=== PATIENT | male | born 1945 | race Caucasian/White ===

== ENCOUNTER 2016-10-14 07:40 | Outpatient (CLI) | payer MEDICARE, OTHER | END 2016-10-14 07:41 | disposition home or self-care (01) | DX: I25.10 Atherosclerotic heart disease of native coronary artery without angina pectoris (principal); E78.5 Hyperlipidemia, unspecified; Z51.81 Encounter for therapeutic drug level monitoring; Z12.5 Encounter for screening for malignant neoplasm of prostate | CPT/HCPCS: 36415; 80053; 80061; 85025; G0103 ==

== ENCOUNTER 2018-12-28 09:47 | Outpatient (CLI) | payer MEDICARE, OTHER ==
--- NOTE | 2018-12-28 10:58 | XRAY Report ---
Reason: ARTHRITIS Procedure Date: 12/28/2018 Accession Number: [id number] / [id number] Procedure: WCP - Hand 3 View BILAT CPT Code: FULL RESULT: EXAMS: 1. RIGHT HAND RADIOGRAPHY 2. LEFT HAND RADIOGRAPHY EXAM DATE: 12/28/2018 10:07 AM. CLINICAL HISTORY: Arthritis. COMPARISON: None. TECHNIQUE: 2 views each hand. FINDINGS: Right: Bones: Normal. No fractures or bone lesions. Joints: Predominantly distal interphalangeal joint space narrowing is noted without osseous destruction. Mild to moderate degenerative changes at the first carpometacarpal joint are also identified. Soft Tissues: Normal. No soft tissue swelling. Left: Bones: Normal. No fractures or bone lesions. Joints: Predominantly distal interphalangeal joint space narrowing is noted without osseous destruction. Soft Tissues: Normal. No soft tissue swelling. IMPRESSION: Mild osteoarthrosis. No erosive changes are detected. RADIA
== END 2018-12-28 09:48 | disposition home or self-care (01) ==
LOC: DI.WCP 09:47
PROVIDERS: ATTEND Internal Medicine Rheumatology
DX: M19.042 Primary osteoarthritis, left hand (principal); M19.041 Primary osteoarthritis, right hand

== ENCOUNTER 2018-12-28 09:51 | Outpatient (CLI) | payer MEDICARE, OTHER ==
--- NOTE | 2018-12-28 10:58 | XRAY Report ---
Reason: PELVIC PAIN Procedure Date: 12/28/2018 Accession Number: [id number] / [id number] Procedure: WCP - Pelvis 1 View CPT Code: FULL RESULT: EXAM: PELVIS RADIOGRAPHY EXAM DATE: 12/28/2018 10:07 AM. CLINICAL HISTORY: Pelvic pain. COMPARISON: None. TECHNIQUE: 1 view. FINDINGS: Bones: Normal. No fracture or bone lesion. Joints: The visualized hip joints demonstrate symmetric mild joint space narrowing. The pubis symphysis, and sacroiliac joints are preserved. No subluxation. Soft Tissues: Hyperdense material is seen within the bladder. IMPRESSION: Mild degenerative disease of the hips. RADIA
== END 2018-12-28 09:52 | disposition home or self-care (01) ==
LOC: DI.WCP 09:51
PROVIDERS: ATTEND Internal Medicine Rheumatology
DX: M16.0 Bilateral primary osteoarthritis of hip (principal); R10.2 Pelvic and perineal pain; M19.041 Primary osteoarthritis, right hand; M19.042 Primary osteoarthritis, left hand
CPT/HCPCS: 72170

== ENCOUNTER 2020-02-01 09:15 | Outpatient (CLI) | payer MEDICARE, OTHER ==
[2020-02-01 13:06] LABS: BASOPHILS # (AUTO) 0.1 10^3/uL (0.0-0.1); BASOPHILS % (AUTO) 1.1 %; EOSINOPHILS # (AUTO) 0.2 10^3/uL (0.0-0.7); EOSINOPHILS % (AUTO) 3.7 %; HGB - HEMOGLOBIN 13.2 g/dL (14.0-18.0); LYMPHOCYTES # (AUTO) 1.3 10^3/uL (1.5-3.5); LYMPHOCYTES % (AUTO) 19.6 %; MEAN CORPUSCULAR HEMOGLOBIN 31.7 pg (27.0-31.0); MEAN CORPUSCULAR HGB CONC 32.4 g/dL (32.0-36.0); MEAN CORPUSCULAR VOLUME 98.1 fL (80.0-94.0); MEAN PLATELET VOLUME 10.1 fL (7.4-11.4); MONOCYTES # (AUTO) 0.8 10^3/uL (0.0-1.0); MONOCYTES % (AUTO) 11.6 %; NEUTROPHILS # (AUTO) 4.2 10^3/uL (1.5-6.6); NEUTROPHILS % (AUTO) 63.7 %; PLT - PLATELET COUNT 237 10^3/uL (130-450); RED BLOOD COUNT 4.16 10^6/uL (4.70-6.10); RED CELL DISTRIBUTION WIDTH 13.2 % (12.0-15.0); WHITE BLOOD COUNT 6.5 x10^3/uL (4.8-10.8)
[2020-02-01 13:42] LABS: ALBUMIN 3.9 g/dL (3.2-5.5); ALBUMIN/GLOBULIN RATIO 1.2 (1.0-2.2); ALKALINE PHOSPHATASE 75 IU/L (42-121); ALT ALANINE AMINOTRANSFERASE 14 IU/L (10-60); AST ASPARTATE AMINOTRANSFERASE 18 IU/L (10-42); BILIRUBIN,TOTAL 1.3 mg/dL (0.2-1.0); BUN - BLOOD UREA NITROGEN 34 mg/dL (6-20); CALCIUM 8.7 mg/dL (8.5-10.3); CARBON DIOXIDE - CO2 28 mmol/L (21-32); CHLORIDE 103 mmol/L (101-111); CHOL/HDL RATIO 3.2 (<5.0); CHOLESTEROL 137 mg/dL; CREATININE 1.3 mg/dL (0.6-1.2); GLUCOSE 108 mg/dL (70-100); HDL CHOLESTEROL 43 mg/dL; LDL CHOLESTEROL,CALCULATED 81 mg/dL; LDL/HDL RATIO 1.9 (<3.6); SODIUM 140 mmol/L (135-145); TOTAL PROTEIN 7.1 g/dL (6.7-8.2); VLDL CHOLESTEROL 13 mg/dL
== END 2020-02-01 23:59 | disposition home or self-care (01) ==
LOC: LAB.WCP 09:15
PROVIDERS: ATTEND Physician Assistant Medical
DX: I10 Essential (primary) hypertension (principal); E78.5 Hyperlipidemia, unspecified
CPT/HCPCS: 36415; 80053; 80061; 83721; 85025

== ENCOUNTER 2020-03-19 08:00 | Outpatient (CLI) | payer MEDICARE, OTHER ==
[2020-03-19 11:56] LABS: BASOPHILS # (AUTO) 0.1 10^3/uL (0.0-0.1); BASOPHILS % (AUTO) 1.1 %; EOSINOPHILS # (AUTO) 0.2 10^3/uL (0.0-0.7); EOSINOPHILS % (AUTO) 2.7 %; HGB - HEMOGLOBIN 13.1 g/dL (14.0-18.0); LYMPHOCYTES # (AUTO) 1.1 10^3/uL (1.5-3.5); LYMPHOCYTES % (AUTO) 14.6 %; MEAN CORPUSCULAR HEMOGLOBIN 30.5 pg (27.0-31.0); MEAN CORPUSCULAR HGB CONC 31.6 g/dL (32.0-36.0); MEAN CORPUSCULAR VOLUME 96.5 fL (80.0-94.0); MEAN PLATELET VOLUME 10.1 fL (7.4-11.4); MONOCYTES # (AUTO) 0.8 10^3/uL (0.0-1.0); MONOCYTES % (AUTO) 10.1 %; NEUTROPHILS # (AUTO) 5.3 10^3/uL (1.5-6.6); NEUTROPHILS % (AUTO) 71.2 %; PLT - PLATELET COUNT 239 10^3/uL (130-450); RED BLOOD COUNT 4.29 10^6/uL (4.70-6.10); RED CELL DISTRIBUTION WIDTH 13.2 % (12.0-15.0); WHITE BLOOD COUNT 7.4 x10^3/uL (4.8-10.8)
[2020-03-19 13:08] LABS: % IRON SATURATION 16 % (20-50); FERRITIN 38.5 ng/mL (23.9-336.2); IRON 68 ug/dL (45-182); TOTAL IRON BINDING CAPACITY 423 ug/dL (250-450); TRANSFERRIN 302 mg/dL (180-329)
[2020-03-19 13:12] LABS: FOLATE 11.08 ng/mL (5.90 - >24.8)
== END 2020-03-19 23:59 | disposition home or self-care (01) ==
LOC: LAB.WCP 08:00
PROVIDERS: ATTEND Physician Assistant Medical
DX: D64.9 Anemia, unspecified (principal)
CPT/HCPCS: 36415; 82607; 82728; 82746; 83540; 84466; 85025

== ENCOUNTER 2020-05-09 08:00 | Outpatient (CLI) | payer MEDICARE, OTHER | END 2020-05-09 23:59 | disposition home or self-care (01) | LOC: LAB.WCP 08:00 | PROVIDERS: ATTEND Physician Assistant Medical | DX: E53.8 Deficiency of other specified B group vitamins (principal) | CPT/HCPCS: 36415; 82607 ==

== ENCOUNTER 2020-06-04 07:17 | Outpatient (CLI) | payer MEDICARE, OTHER ==
--- NOTE | 2020-06-04 14:27 | Ultrasound Report ---
PROCEDURE: Abdomen Limited INDICATIONS: RUQ ABD PAIN TECHNIQUE: Real-time focused scanning was performed of the abdomen, with image documentation. COMPARISON: CT abdomen/pelvis 05/03/2016 FINDINGS: The liver measures up to 19.1 cm craniocaudad, mildly enlarged. The liver appears diffusel y hyperechoic consistent with fatty infiltration. Large body habitus reduces quality of visualization . At the inferior right hepatic lobe what appears to be a hepatic hemangioma measures up to 1.5 x 1.8 x 1.9 cm. This is hyperechoic and shows increased through transmission of ultrasound. It cannot be s een on prior CT scanning but the phase of contrast enhancement was not optimized for such visualizati on. There is a finding of several scattered mobile stones within the gallbladder lumen which shows no bianca dence of acute cholecystitis or obstruction. Right kidney appears normal. IMPRESSION: Fatty infiltration within the liver. What appears to be a focal hemangioma is present within the righ t hepatic lobe in an area that was not well visualized by prior CT scanning in April 2016. Recommend follow-up ultrasound in 3-6 months to confirm stability of appearance over time at this site. Gallst ones are seen within the gallbladder lumen without evidence of acute cholecystitis or biliary obstruc tion. Reviewed by: John Godinez MD on 06/04/2020 2:26 PM PDT Approved by: John Godinez MD on 06/04/2020 2:26 PM PDT Station ID: [id number]
== END 2020-06-04 07:18 | disposition home or self-care (01) ==
LOC: DI 07:17
PROVIDERS: ATTEND Physician Assistant Medical
DX: K76.0 Fatty (change of) liver, not elsewhere classified (principal); R93.2 Abnormal findings on diagnostic imaging of liver and biliary tract
CPT/HCPCS: 76705

== ENCOUNTER 2020-08-07 08:00 | Outpatient (CLI) | payer MEDICARE, OTHER ==
[2020-08-07 11:59] LABS: BASOPHILS # (AUTO) 0.1 10^3/uL (0.0-0.1); BASOPHILS % (AUTO) 1.1 %; EOSINOPHILS # (AUTO) 0.3 10^3/uL (0.0-0.7); EOSINOPHILS % (AUTO) 3.5 %; HGB - HEMOGLOBIN 12.5 g/dL (14.0-18.0); LYMPHOCYTES # (AUTO) 1.3 10^3/uL (1.5-3.5); LYMPHOCYTES % (AUTO) 18.5 %; MEAN CORPUSCULAR HEMOGLOBIN 31.6 pg (27.0-31.0); MEAN CORPUSCULAR HGB CONC 32.1 g/dL (32.0-36.0); MEAN CORPUSCULAR VOLUME 98.5 fL (80.0-94.0); MEAN PLATELET VOLUME 9.9 fL (7.4-11.4); MONOCYTES # (AUTO) 0.8 10^3/uL (0.0-1.0); NEUTROPHILS # (AUTO) 4.7 10^3/uL (1.5-6.6); NEUTROPHILS % (AUTO) 65.6 %; PLT - PLATELET COUNT 255 10^3/uL (130-450); RED BLOOD COUNT 3.95 10^6/uL (4.70-6.10); RED CELL DISTRIBUTION WIDTH 12.5 % (12.0-15.0); WHITE BLOOD COUNT 7.2 x10^3/uL (4.8-10.8)
[2020-08-07 12:12] LABS: ALBUMIN 3.8 g/dL (3.2-5.5); ALBUMIN/GLOBULIN RATIO 1.2 (1.0-2.2); ALKALINE PHOSPHATASE 79 IU/L (42-121); ALT ALANINE AMINOTRANSFERASE 13 IU/L (10-60); AST ASPARTATE AMINOTRANSFERASE 17 IU/L (10-42); BILIRUBIN,TOTAL 0.9 mg/dL (0.2-1.0); BUN - BLOOD UREA NITROGEN 35 mg/dL (6-20); CALCIUM 8.9 mg/dL (8.5-10.3); CARBON DIOXIDE - CO2 29 mmol/L (21-32); CHLORIDE 103 mmol/L (101-111); CHOL/HDL RATIO 3.2 (<5.0); CHOLESTEROL 132 mg/dL; CREATININE 1.8 mg/dL (0.6-1.2); GLUCOSE 105 mg/dL (70-100); HDL CHOLESTEROL 41 mg/dL; LDL CHOLESTEROL,CALCULATED 76 mg/dL; LDL/HDL RATIO 1.9 (<3.6); SODIUM 140 mmol/L (135-145); TOTAL PROTEIN 7.1 g/dL (6.7-8.2); VLDL CHOLESTEROL 15 mg/dL
== END 2020-08-07 23:59 | disposition home or self-care (01) ==
LOC: LAB.WCP 08:00
PROVIDERS: ATTEND Physician Assistant Medical
DX: E78.5 Hyperlipidemia, unspecified (principal); E53.8 Deficiency of other specified B group vitamins
CPT/HCPCS: 36415; 80053; 80061; 82607; 83721; 85025

== ENCOUNTER 2020-09-16 08:59 | Outpatient (CLI) | payer MEDICARE, OTHER ==
[2020-09-16 14:07] LABS: CREATININE 1.2 mg/dL (0.6-1.2); POTASSIUM 3.5 mmol/L (3.5-5.0)
== END 2020-09-16 23:59 | disposition home or self-care (01) ==
LOC: LAB.WCP 08:59
PROVIDERS: ATTEND Physician Assistant Medical
DX: I10 Essential (primary) hypertension (principal)
CPT/HCPCS: 36415; 80048

== ENCOUNTER 2020-09-24 18:21 | Outpatient (CLI) | payer MEDICARE, OTHER ==
--- NOTE | 2020-09-25 08:35 | XRAY Report ---
PROCEDURE: Chest 2 View X-Ray INDICATIONS: Reactive Airway Disease TECHNIQUE: 2 view(s) of the chest. COMPARISON: 07/22/2010. FINDINGS: Surgical changes and devices: None. Lungs and pleura: No pleural effusions or pneumothorax. Mild elevation of right hemidiaphragm and bl unting of right costophrenic angle is seen suggestive of trace right pleural effusion/thickening. Inc reased bronchovascular markings in bilateral hilar region are seen with mild bronchial wall thickenin g. No definite focal infiltrate. Mediastinum: Mediastinal contours are normal. Heart size is normal. Bones and chest wall: No suspicious bony abnormalities. Soft tissues appear unremarkable. IMPRESSION: Suggestion of reactive airway disease such as bronchitis or asthma. Trace right pleural effusion versus pleural thickening. Mild elevation of right hemidiaphragm. No definite focal infiltra te. No gross pneumothorax. Reviewed by: Estrada Covarrubias MD on 09/25/2020 8:34 AM PST Approved by: Estrada Covarrubias MD on 09/25/2020 8:34 AM PST Station ID: [id number]
== END 2020-09-24 18:22 | disposition home or self-care (01) ==
LOC: DI 18:21
PROVIDERS: ATTEND Physician Assistant Medical
DX: J45.998 Other asthma (principal)

== ENCOUNTER 2020-09-25 07:59 | Outpatient (CLI) | payer MEDICARE, OTHER ==
--- OUTSIDE RECORDS SUMMARY | 2020-10-01 00:59 | EXTERNAL MEDICAL SUMMARY RPT | Continuity of Care Document ---
:1945 Demographics Phone Unavailable Preferred Language Czech Marital Status Unknown Samaritan Affiliation Unknown Race Unknown Ethnic Group Unknown Author Organization [place] Address [address] [place] [address] Phone Care Team Providers Name Role Phone PA-C Unavailable Unavailable Young Unavailable Unavailable Graves Unavailable Unavailable Problems date description facility [facility] 2020-07-21 00:00:00 COMPREHENSIVE METABOLIC PANEL [facility] Primary Care [facility] 2020-07-21 00:00:00 LIPID SCREEN, FASTING [facility] P rimary Care [facility] 2020-07-21 00:00:00 [facility]AMIN B 12 [facility] 2020-07-21 00:00:00 CBC W/Diff/Plt [facility] 2020-08-07 00:00 DEFICIENCY OF OTHER SPECIFIED B [facility] 2020-08-07 00:00 HYPERLIPIDEMIA, UNSPECIFIED [facility] 2020-08-07 08:00 DEFICIENCY OF OTHER SPECIFIED B [facility] 2020-08-07 08:00 HYPERLIPIDEMIA, UNSPECIFIED [facility] 2020-08-13 00:00:00 Basic Metabolic Panel (BMP) [facility] Primary Care [facility] 2020-08-13 00:00:00 Chronic kidney disease, [facility] 2020-08-13 00:00:00 Alcohol intake [facility] 2020-08-13 00:00:00 [facility]related [facility] 2020-08-13 00:00:00 Tobacco use and exposure [facility] 2020-08-13 00:00:00 [facility] 2020-08-13 00:00:00 [facility] 2020-08-13 00:00:00 Alcohol use [facility] 2020-08-13 00:00:00 Tobacco smoking status [facility]IS [facility] 2020-08-13 00:00:00 Chronic renal [facility] 2020-09-04 00:00:00 Alcohol intake [facility] Prim [facility] Care [facility] 2020-09-04 00:00:00 Health-related behavior [facility] 2020-09-04 00:00:00 [facility] 2020-09-04 00:00:00 Exercise [facility] Prim [facility] Care [facility] 2020-09-04 00:00:00 [facility] smoker [facility] 2020-09-04 00:00:00 [facility] 2020-09-04 00:00:00 Tobacco smoking status NHIS [facility] 2020-09-16 00:00 [facility] 2020-09[facility]16 08:59 [facility] 2020-09-23 00:00:00 [facility]ST [facility] 2020-09-24 00:00:00 ECHO TRANSTHORACIC COMPLETE [facility] 2020-09-24 00:00:00 [facility] 2020-09-24 00:00:00 Health-related behavior [facility] 2020-09-24 00:00:00 [facility] 2020-09-24 00:00:00 Exercise [facility] Care [facility] 2020-09-24 00:00:00 Never smoker [facility] 2020-09-24 00:00:00 [facility] use [facility] 2020-09-24 00:00:00 Tobacco [facility] 2020-09-24 18:21 OTHER ASTHMA [facility] Allergies date description facility No Known Drug Allergies [facility] NO KNOWN ENVIRONMENTAL ALLERGIES [facility] MORPHINE [facility] NO KNOWN ALLERGIES [facility] NO ALLERGY INFORMATION AVAILABLE [facility] No Known Drug Allergies [facility] CEPHALEXIN [facility] ESCITALOPRAM [facility] FLUOXETINE [facility] PENICILLINS [facility] SULFA ANTIBIOTICS [facility] FOOD [facility] No Known Drug Allergies [facility] Medications date description facility 2020-07-15 00:00:00 null [facility] 2020-09-26 00:00:00 null [facility] 2020-09-26 00:00:00 null [facility] 2020-09-26 00:00:00 PREDNISONE [facility] 2020-09-26 00:00:00 PREDNISONE [facility] 2020-09-29 00:00:00 null [facility] 2020-09-29 00:00:00 null [facility] Prim [facility] 2020-09-29 00:00:00 ALBUTEROL SULFATE [facility] 2020-09-29 00:00:00 ALBUTEROL SULFATE [facility] Procedures date description facility 2020-07-21 00:00:00 COMPREHENSIVE METABOLIC PANEL [facility] date description facility 2020-07-21 00:00:00 LIPID SCREEN, FASTING [facility] P [facility] date description facility 2020-07-21 00:00:00 VITAMIN B 12 [facility] date description facility 2020-07-21 00:00:00 CBC W/Diff/Plt [facility] date description facility 2020-07-21 00:00:00 [facility] date description facility 2020-08-13 00:00:00 Basic Metabolic Panel (BMP) [facility] date description facility 2020-08-13 00:00:00 EKG Office Complete [facility] date description facility 2020-08-13 00:00:00 [facility] date description facility 2020-09-03 00:00:00 [facility] date description facility 2020-09-23 00:00:00 CHEST 2 VIEW [facility] date description facility 2020-09-23 00:00:00 [facility] Results Social History date description facility 2020-08-13 00:00:00 Never smoker [facility] date description facility 2020-09-04 00:00:00 Never smoker [facility] date description facility 2020-09-24 00:00:00 Never smoker [facility] Social History date description facility 2020-08-13 00:00:00 Never smoker [facility] date description facility 2020-09-04 00:00:00 Never smoker [facility] date description facility 2020-09-24 00:00:00 Never smoker [facility] date description facility [phone]
== END 2020-09-25 08:00 | disposition home or self-care (01) ==
LOC: COV 07:59
PROVIDERS: ATTEND Surgery
DX: Z01.812 Encounter for preprocedural laboratory examination (principal); K81.1 Chronic cholecystitis; Z20.822 Contact with and (suspected) exposure to COVID-19

== ENCOUNTER 2020-10-09 19:53 | Outpatient (CLI) | payer MEDICARE, OTHER | END 2020-10-09 19:54 | disposition home or self-care (01) | LOC: COV 19:53 | PROVIDERS: ATTEND Surgery | DX: Z01.812 Encounter for preprocedural laboratory examination (principal); K81.1 Chronic cholecystitis; Z20.822 Contact with and (suspected) exposure to COVID-19 ==

== ENCOUNTER 2020-10-17 16:21 | Outpatient (CLI) | payer MEDICARE, OTHER | END 2020-10-17 16:22 | disposition home or self-care (01) | LOC: COV 16:21 | PROVIDERS: ATTEND Surgery | DX: Z01.812 Encounter for preprocedural laboratory examination (principal); K81.1 Chronic cholecystitis; Z20.822 Contact with and (suspected) exposure to COVID-19 ==

== ENCOUNTER 2020-10-21 07:21 | Day surgery (SDC) | payer MEDICARE, OTHER ==
[2020-10-21] MEDS ORDERED: LACTATED RINGERS 1,000 ML IV ONE ×2 (07:26→10:43)
[2020-10-21] MEDS ORDERED: ceFAZolin 2 GM/50 ML 2 GM/50 ML BAG IV ONE (07:43)
[2020-10-21] MEDS ORDERED: fentaNYL 100 MCG/2 ML VIAL ONE ×2 (07:45→10:08)
[2020-10-21] MEDS ORDERED: LIDOCAINE-MPF 2% 5 ML VIAL ONE (07:45)
[2020-10-21] MEDS ORDERED: MIDAZOLAM 2 MG/2 ML VIAL ONE (07:45)
[2020-10-21] MEDS ORDERED: PROPOFOL 200 MG/20 ML VIAL IVP ONE (07:45)
[2020-10-21] MEDS ORDERED: ROCURONIUM 50 MG/5 ML VIAL ONE (07:45)
--- NOTE | 2020-10-21 08:02 | ANESTHESIA ---
Pre-Anesthesia VS, & Labs - Diagnosis chronic cholecystitis - Procedure lap aundrea Vital Signs: Temp Pulse Resp BP Pulse Ox 36.6 C 61 12 147/66 H 97 10/21/20 07:27 10/21/20 07:27 10/21/20 07:27 10/21/20 07:27 10/21/20 07:27 Height: 5 ft 9 in Weight (kg): 99.7 kg Body Mass Index: 32.4 BMI Classification: Obese - NPO >8 hours Home Medications and Allergies Aspirin [Adult Low Dose Aspirin EC] 81 mg PO DAILY 02/12/16 Cholecalciferol [Vitamin D3] 2,000 unit PO DAILY 02/12/16 Cyanocobalamin (Vitamin B-12) [Vitamin B12] 1,000 mcg PO DAILY 02/12/16 Isosorbide Mononitrate ER [Imdur] 60 mg PO DAILY 02/12/16 Losartan Potassium 50 mg PO BID 02/12/16 Pantoprazole Sodium [Protonix] 40 mg PO DAILY 02/12/16 atenoloL [Atenolol] 12.5 mg PO DAILY 02/12/16 Amlodipine Besylate [Norvasc] 10 mg PO DAILY 09/23/20 Metronidazole 1% Gel [Metrogel] 1 applic TOP BID 09/23/20 Propylene Glycol [Systane Balance] 1 drops EACHEYE BID 09/23/20 Rivaroxaban [Xarelto] 20 mg PO QPM 09/23/20 Rosuvastatin Calcium [Crestor] 5 mg PO QPM 09/23/20 Ubidecarenone [Co Q-10] 200 mg PO DAILY 09/23/20 Albuterol Sulfate [Proair Hfa Inhaler] 1 - 2 puffs INH Q4H PRN 10/06/20 Allergies/Adverse Reactions: Allergies Allergy/AdvReac Type Severity Reaction Status Date / Time No Known Drug Allergies Allergy Verified 02/12/16 11:07 Anes History & Medical History - Anesthetic History Anesthesia Complications: reports: No previous complications - Medical History Cardiovascular: reports: High cholesterol, Coronary artery disease (s/p stent), Atrial fibrillation, Murmur, Arrhythmia Pulmonary: reports: Asthma, Sleep apnea, CPAP use Gastrointestinal: reports: GERD, Hiatal hernia, Chronic constipation, Cholelithiasis Urinary: reports: None Neuro: reports: None Musculoskeletal: reports: Osteoarthritis Endocrine/Autoimmune: reports: None Blood Disorders: reports: None Skin: reports: Psoriasis Smoking Status: Never smoker Psychosocial: reports: No issues indicated History of Cancer?: No - Surgical History General: Hiatal hernia repair, Colonoscopy Cardiothoracic: Coronary stent Orthopedic: Carpal Tunnel surgery Exam General: Alert, Oriented x3, Cooperative, No acute distress Dental: WNL Mouth Openin Fingerbreadth Neck Mobility: Normal Mallampati classification: III (High arched palate, short TMD) Thyromental Distance: less than 4 cm Mental/Cognitive Status: Alert/Oriented X3, Normal for patient Plan Anesthesia Type: General Consent for Procedure(s) Verified and Reviewed: Yes Code Status: Attempt Resuscitation ASA classification: 3-Severe systemic disease Is this case an emergency?: No
[2020-10-21] MEDS ORDERED: BUPIVACAINE 0.25% PF 30 ML VIAL SUBQ ONE ×2 (08:03→09:54)
[2020-10-21] MEDS ORDERED: BUPIVACAINE 0.25% PF 30 ML VIAL ONE (08:11)
--- NOTE | 2020-10-21 08:20 | HISTORY & PHYSICAL EXAMINATION ---
Chief Complaint - Chief Complaint Chief Complaint: right upper quadrant pain History of Present Illness - History Obtained From History obtained from: patient Exam Limitations: none - History of Present Illness HPI Comment/Other: He has had several months of daily right upper quadrant pain consistent with biliary cholic and chronic cholecystitis. He has gallstones. No signs or symptoms of choledocholithiasis History - Past Medical History Cardiovascular: reports: High cholesterol, Coronary artery disease (s/p stent), Atrial fibrillation, Murmur, Arrhythmia Respiratory: reports: Asthma, Sleep apnea, CPAP use Neuro: reports: None Endocrine/Autoimmune: reports: None GI: reports: GERD, Hiatal hernia, Chronic constipation, Cholelithiasis : reports: None HEENT: reports: Chronic vision loss Psych: reports: None Musculoskeletal: reports: Osteoarthritis Derm: reports: Psoriasis MRSA Hx?: No - Past Surgical History General: reports: Hiatal hernia repair, Colonoscopy Ortho: reports: Carpal Tunnel surgery Cardiovascular: reports: Coronary stent Meds/Allgy - Home Medications Home Medications: Ambulatory Orders Medication Instructions Recorded Confirmed Aspirin [Adult Low Dose Aspirin EC] 81 mg PO DAILY 02/12/16 10/21/20 Cholecalciferol [Vitamin D3] 2,000 unit PO DAILY 02/12/16 10/21/20 Cyanocobalamin (Vitamin B-12) 1,000 mcg PO DAILY 02/12/16 10/21/20 [Vitamin B12] Isosorbide Mononitrate ER [Imdur] 60 mg PO DAILY 02/12/16 10/21/20 Losartan Potassium 50 mg PO BID 02/12/16 10/21/20 Pantoprazole Sodium [Protonix] 40 mg PO DAILY 02/12/16 10/21/20 atenoloL [Atenolol] 12.5 mg PO DAILY 02/12/16 10/21/20 Amlodipine Besylate [Norvasc] 10 mg PO DAILY 09/23/20 10/21/20 Metronidazole 1% Gel [Metrogel] 1 applic TOP BID 09/23/20 10/21/20 Propylene Glycol [Systane Balance] 1 drops EACHEYE BID 09/23/20 10/21/20 Rivaroxaban [Xarelto] 20 mg PO QPM 09/23/20 10/21/20 Rosuvastatin Calcium [Crestor] 5 mg PO QPM 09/23/20 10/21/20 Ubidecarenone [Co Q-10] 200 mg PO DAILY 09/23/20 10/21/20 Albuterol Sulfate [Proair Hfa 1 - 2 puffs INH Q4H PRN 10/06/20 10/21/20 Inhaler] - Allergies Allergies/Adverse Reactions: Allergies Allergy/AdvReac Type Severity Reaction Status Date / Time No Known Drug Allergies Allergy Verified 02/12/16 11:07 Review of Systems - Constitutional Constitutional: reports: Fatigue (10 pt ros as above otherwise unremarkable. recent cardiac clearance. Off blood thinners for couple days) Exam - Vital Signs Reviewed Vital Signs: Yes Vital Signs: Vital Signs x48h Temp Pulse Resp BP Pulse Ox 10/21/20 07:27 36.6 C 61 12 147/66 H 97 - Physical Exam General Appearance: positive: No acute distress, Alert Eyes Bilateral: positive: Normal inspection, PERRL, EOMI ENT: positive: Pharynx nml Neck: positive: No JVD Respiratory: positive: No respiratory distress, Breath sounds nml Cardiovascular: positive: Irregularly irregular Abdomen: positive: Non-tender, No distention, Other (large umbilical hernia) Neurologic/Psychiatric: positive: Oriented x3 Conclusion/Plan - Problem List (1) Chronic cholecystitis Conclusion/Plan: plan lap cholecystectomy. parq held and consent obtained - Lab Results Lab results reviewed: Yes - Diagnostic Imaging Results Diagnostic Imaging Results: positive: Read independently (gallstones)
[2020-10-21] MEDS ORDERED: MORPHINE 2 MG/ML CARPUJECT IVP PRN (08:26)
[2020-10-21] MEDS ORDERED: NALOXONE 0.4 MG/ML VIAL IVP PRN (08:26)
[2020-10-21] MEDS ORDERED: ONDANSETRON 4 MG/2 ML VIAL IVP PRN ×2 (08:26→10:17)
[2020-10-21] MEDS ORDERED: METOCLOPRAMIDE 10 MG/2 ML VIAL IVP PRN (08:26)
[2020-10-21] MEDS ORDERED: ePHEDrine 50 MG/ML VIAL IVP PRN (08:26)
[2020-10-21] MEDS ORDERED: fentaNYL 100 MCG/2 ML VIAL IVP PRN (08:26)
[2020-10-21] MEDS ORDERED: HYDROmorphone 0.5 MG/0.5 ML SYRINGE IVP PRN ×2 (08:26→08:41)
[2020-10-21] MEDS ORDERED: ATROPINE ABBOJECT 1 MG/10 ML SYRINGE IVP PRN (08:26)
[2020-10-21] MEDS ORDERED: DEXAMETHASONE 4 MG/ML VIAL ONE (08:59)
[2020-10-21] MEDS ORDERED: ONDANSETRON 4 MG/2 ML VIAL ONE (08:59)
[2020-10-21] MEDS ORDERED: LACTATED RINGERS 1,000 ML IV SCH (09:00)
[2020-10-21] MEDS ORDERED: SUGAMMADEX 200 MG/2 ML VIAL IVP ONE (09:58)
[2020-10-21] MEDS ORDERED: HYDROcod/ACETAM 5/325 MG TABLET PO PRN (10:17)
--- NOTE | 2020-10-21 10:17 | OPERATIVE REPORT ---
Operative Report - General Procedure Date: 10/21/20 Planned Procedure: lap aundrea Pre-Op Diagnosis: chronic cholecystitis Procedure Performed: lap aundrea Post Op Diagnosis: same - Procedure Note Primary Surgeon: zackary cortez Anesthesia Technique: General ET tube, Local Pathology: gallbladder Estimated Blood Loss (mL): 10 Drain/Tube Type: Other (none) Findings: chronic cholecystitis Complications: none
[2020-10-21] MEDS ORDERED: HYDROmorphone 0.5 MG/0.5 ML SYRINGE ONE (10:51)
[2020-10-21 11:20] VITALS: BP 112/69
--- NOTE | 2020-10-21 11:25 | OPERATIVE REPORT ---
DATE OF SERVICE: 10/21/2020 Physician: Sarthak Bassett MD 10/21/2020 PREOPERATIVE DIAGNOSIS: Chronic cholecystitis. POSTOPERATIVE DIAGNOSIS: Chronic cholecystitis. PROCEDURE PERFORMED: Laparoscopic cholecystectomy. SURGEON: Sarthak Bassett MD RESEARCH NEUROPSYCHOLOGIST: None. ANESTHESIA: 1. General endotracheal anesthesia. 2. Local anesthesia with Marcaine. COMPLICATIONS: None. SPECIMENS: Gallbladder. ESTIMATED BLOOD LOSS: None. DRAINS: None. FINDINGS: Mild chronic cholecystitis. A small cystic duct. INDICATIONS FOR PROCEDURE: The patient is a 75-year-old gentleman with classic chronic cholecystitis symptoms. He has daily right upper quadrant pain. He has not had signs or symptoms of choledocholithiasis. He presents for laparoscopic cholecystectomy. Risks discussed, alternatives discussed. All questions answered and consent obtained. DESCRIPTION OF PROCEDURE: The patient was properly identified and brought to the operating room and placed in supine position. He voided prior to surgery. General endotracheal anesthesia was induced. Sequential compression devices were placed. He was prepped and draped in a sterile fashion and given preoperative antibiotics. Local anesthetic was given to incision areas. He has a 4 cm umbilical hernia and a large diastasis. Incision was made approximately 5 cm cephalad and a 4 cm right lateral of the umbilicus. Dissection proceeded down to the fascia. The fascia was incised, lifted upwards and abdomen entered with the Veress needle. CO2 was insufflated to a pressure of 15. An 11 mm Visiport trocar with 30-degree scope was then placed. There was no evidence of injury from Veress needle or trocar placement. Under direct vision, two 5 mm trocars were placed in the right upper quadrant and a 10 mm trocar was placed in the epigastrium. Body of the gallbladder was retracted anterior. Lateral attachments were partially taken down further mobilizing the gallbladder more anterior and away from the duodenum. The Alicia's pouch and infundibulum area was then retracted right lateral and caudad. The cystic duct and cystic artery were both clearly identified. A large bare cystic plate area or window was created. The cystic duct and cystic artery were both clipped at the gallbladder and an additional 2-3 times slightly proximal and sharply divided. The gallbladder was mobilized off from the bed of the liver without spillage of bile or stone material. A Surgicel was placed at the liver bed area for further assurance of hemostasis. Fascia at the epigastrium was closed with a [id number] 0 Vicryl. Trocars were removed under direct vision and CO2 evacuated. Fascia at the periumbilical site was closed with a running 0 Vicryl suture. Skin was closed with buried interrupted or running 4-0 Monocryl subcuticular suture. Steri-Strips and dressings were applied. He tolerated the procedure very well. TD: 10/21/2020 10:47 [facility]
--- NOTE | 2020-10-21 11:48 | ANESTHESIA POST OP EVALUATION ---
Anesthesia Post Eval - Post Anesthesia Eval Vitals: Last Vital Signs Temp 36.4 C L 10/21/20 11:20 Pulse 50 L 10/21/20 11:20 Resp 12 10/21/20 11:20 BP 112/69 10/21/20 11:20 Pulse Ox 94 10/21/20 11:20 CV Function Including HR & BP: positive: Stable Pain Control: positive: Satisfactory Nausea & Vomiting: positive: Negative Mental Status: positive: Baseline Respiratory Status: Airway Patent Hydration Status: Satisfactory Anesthesia Complications: positive: None
== END 2020-10-21 07:22 | disposition home or self-care (01) ==
LOC: SDS 07:21
PROVIDERS: ATTEND Surgery
PROC: 0FT44ZZ Resection of Gallbladder, Percutaneous Endoscopic Approach (ICD-10-PCS; principal; 2020-10-21 08:30)
DX: K80.10 Calculus of gallbladder with chronic cholecystitis without obstruction (principal); K42.9 Umbilical hernia without obstruction or gangrene; I48.91 Unspecified atrial fibrillation; I25.10 Atherosclerotic heart disease of native coronary artery without angina pectoris; G47.30 Sleep apnea, unspecified; J45.909 Unspecified asthma, uncomplicated; E66.9 Obesity, unspecified; Z68.32 Body mass index [BMI] 32.0-32.9, adult; Z95.5 Presence of coronary angioplasty implant and graft
CPT/HCPCS: 47562; 93005; A9270; J0690; J1170; J7120

== ENCOUNTER 2021-01-15 08:00 | Outpatient (CLI) | payer MEDICARE, OTHER ==
[2021-01-15 12:00] LABS: BASOPHILS # (AUTO) 0.1 10^3/uL (0.0-0.1); BASOPHILS % (AUTO) 1.6 %; EOSINOPHILS # (AUTO) 0.4 10^3/uL (0.0-0.7); EOSINOPHILS % (AUTO) 5.1 %; HCT - HEMATOCRIT 35.7 % (42.0-52.0); HGB - HEMOGLOBIN 10.6 g/dL (14.0-18.0); LYMPHOCYTES # (AUTO) 1.1 10^3/uL (1.5-3.5); LYMPHOCYTES % (AUTO) 14.7 %; MEAN CORPUSCULAR HEMOGLOBIN 25.4 pg (27.0-31.0); MEAN CORPUSCULAR HGB CONC 29.7 g/dL (32.0-36.0); MEAN CORPUSCULAR VOLUME 85.4 fL (80.0-94.0); MEAN PLATELET VOLUME 9.4 fL (7.4-11.4); MONOCYTES # (AUTO) 0.7 10^3/uL (0.0-1.0); MONOCYTES % (AUTO) 9.9 %; NEUTROPHILS % (AUTO) 68.6 %; PLT - PLATELET COUNT 354 10^3/uL (130-450); RED BLOOD COUNT 4.18 10^6/uL (4.70-6.10); RED CELL DISTRIBUTION WIDTH 15.6 % (12.0-15.0); WHITE BLOOD COUNT 7.3 x10^3/uL (4.8-10.8)
[2021-01-15 12:47] LABS: CALCIUM 9.1 mg/dL (8.5-10.3); CREATININE 1.2 mg/dL (0.6-1.2); POTASSIUM 4.3 mmol/L (3.5-5.0)
[2021-01-20 12:18] LABS: ESTIMATED AVERAGE GLUCOSE 126 mg/dL (70-100)
== END 2021-01-15 23:59 | disposition home or self-care (01) ==
LOC: LAB.WCP 08:00
PROVIDERS: ATTEND Physician Assistant Medical
DX: N18.9 Chronic kidney disease, unspecified (principal); D64.9 Anemia, unspecified; R73.9 Hyperglycemia, unspecified
CPT/HCPCS: 36415; 80048; 83036; 85025

== ENCOUNTER 2021-01-23 08:00 | Outpatient (CLI) | payer MEDICARE, OTHER ==
[2021-01-23 13:29] LABS: FERRITIN 37.5 ng/mL (23.9-336.2)
[2021-01-23 13:32] LABS: % IRON SATURATION 8 % (20-50); FOLATE 9.57 ng/mL (5.90 - >24.8); IRON 38 ug/dL (45-182); TOTAL IRON BINDING CAPACITY 476 ug/dL (250-450); TRANSFERRIN 340 mg/dL (180-329)
== END 2021-01-23 23:59 | disposition home or self-care (01) ==
LOC: LAB.WCP 08:00
PROVIDERS: ATTEND Physician Assistant Medical
DX: E53.8 Deficiency of other specified B group vitamins (principal); D64.9 Anemia, unspecified
CPT/HCPCS: 36415; 82607; 82728; 82746; 83540; 84466

== ENCOUNTER 2021-01-29 09:28 | Outpatient (CLI) | payer MEDICARE, OTHER ==
[2021-01-29] MEDS ORDERED: IOPAMIDOL-300 100 ML VIAL ONE (09:31)
[2021-01-29] MEDS ORDERED: IOPAMIDOL-300 100 ML VIAL IVP ONE (09:48)
--- NOTE | 2021-01-29 10:41 | CT Report ---
PROCEDURE: CHEST W INDICATIONS: DYSPNEA ON EXERTION CONTRAST: IV CONTRAST: Isovue 300 ml: 100 PO CONTRAST: *NO PO CONTRAST TECHNIQUE: After the administration of intravenous contrast, 5 mm thick sections acquired from the pulmonary api lotus to the posterior costophrenic angles. 7 mm thick coronal MIP reformats were acquired. For radia tion dose reduction, the following was used: automated exposure control, adjustment of mA and/or kV according to patient size. COMPARISON: None. FINDINGS: Image quality: Excellent. Lungs and pleura: Mild bilateral basilar predominant groundglass and reticulonodular pulmonary opacit y. No pleural effusions or pneumothorax. Central and peripheral airways are patent and normal in ximena iber. Mediastinum: Heart size is normal. Moderate catheters chronic calcification of the coronary vasculat ure. No pericardial effusion. No mediastinal or hilar adenopathy by size criteria. Thoracic aorta a nd central pulmonary arteries are normal in size. Esophagus is normal in caliber. There is a moderat e hiatal hernia. There is moderate thickening of the mid/distal esophagus. Bones and chest wall: No suspicious bony lesions. No vertebral body compression fractures. No axillary or supraclavicular ad enopathy by size criteria. Thyroid gland is grossly unremarkable. Abdomen: Visualized upper abdominal solid organs appear normal. Upper abdominal bowel loops are nor mal in caliber. IMPRESSION: 1. Hiatal hernia with associated distal esophageal thickening. Endoscopy is recommended to assess for neoplasm. 2. Coronary artery disease. 3. Mild basilar predominant pulmonary opacities as described above, suggestive of edema versus pneumo clay. Reviewed by: Jose Basilio MD on 01/29/2021 10:40 AM PDT Approved by: Jose Basilio MD on 01/29/2021 10:40 AM PDT Station ID: [id number]
== END 2021-01-29 09:29 | disposition home or self-care (01) ==
LOC: DI 09:28
PROVIDERS: ATTEND Physician Assistant Medical
DX: K22.8 Other specified diseases of esophagus (principal); K44.9 Diaphragmatic hernia without obstruction or gangrene; I25.10 Atherosclerotic heart disease of native coronary artery without angina pectoris; R91.8 Other nonspecific abnormal finding of lung field
CPT/HCPCS: 71260; Q9967

== ENCOUNTER 2021-01-30 08:00 | Outpatient (CLI) | payer MEDICARE, OTHER ==
[2021-01-30 18:51] LABS: FECAL OCCULT BLOOD (FIT) POSITIVE (NEGATIVE)
== END 2021-01-30 23:59 | disposition home or self-care (01) ==
LOC: LAB.R 08:00
PROVIDERS: ATTEND Physician Assistant Medical
DX: D64.9 Anemia, unspecified (principal)
CPT/HCPCS: 82274

== ENCOUNTER 2021-01-31 09:21 | Outpatient (CLI) | payer MEDICARE, OTHER ==
[2021-01-31] MEDS ORDERED: ALBUTEROL 1 PUFF INH STA (11:18)
== END 2021-01-31 09:22 | disposition home or self-care (01) ==
LOC: RT 09:21
PROVIDERS: ATTEND Physician Assistant Medical
DX: R06.09 Other forms of dyspnea (principal)
CPT/HCPCS: 94060; 94729

== ENCOUNTER 2021-02-09 08:00 | Outpatient (CLI) | payer MEDICARE, OTHER | END 2021-02-09 23:59 | disposition home or self-care (01) | LOC: LAB.WCP 08:00 | PROVIDERS: ATTEND Physician Assistant Medical | DX: R06.09 Other forms of dyspnea (principal) | CPT/HCPCS: 36415; 83880 ==

== ENCOUNTER 2021-02-10 16:05 | Outpatient (CLI) | payer MEDICARE, OTHER | END 2021-02-10 16:06 | disposition home or self-care (01) | LOC: COV 16:05 | PROVIDERS: ATTEND Surgery | DX: Z01.812 Encounter for preprocedural laboratory examination (principal); D64.9 Anemia, unspecified; R93.89 Abnormal findings on diagnostic imaging of other specified body structures; I25.10 Atherosclerotic heart disease of native coronary artery without angina pectoris; G47.30 Sleep apnea, unspecified; Z20.822 Contact with and (suspected) exposure to COVID-19 ==

== ENCOUNTER 2021-02-13 06:24 | Day surgery (SDC) | payer MEDICARE, OTHER ==
[2021-02-13] MEDS ORDERED: LACTATED RINGERS 1,000 ML IV ONE ×2 (06:31→08:09)
[2021-02-13] MEDS ORDERED: LIDO GARGLE 30 ML BOTTLE ONE (07:07)
[2021-02-13] MEDS ORDERED: PROPOFOL 200 MG/20 ML VIAL IVP ONE (07:10)
[2021-02-13] MEDS ORDERED: fentaNYL 100 MCG/2 ML VIAL ONE (07:11)
[2021-02-13] MEDS ORDERED: LIDOCAINE-MPF 2% 5 ML VIAL ONE (07:11)
[2021-02-13] MEDS ORDERED: MIDAZOLAM 2 MG/2 ML VIAL ONE (07:11)
--- NOTE | 2021-02-13 07:37 | ANESTHESIA ---
Pre-Anesthesia VS, & Labs - Diagnosis Anemia and abnormal CT scan - Procedure EGD Vital Signs: Temp Pulse Resp BP Pulse Ox 36 C L 71 12 190/74 H 99 02/13/21 06:32 02/13/21 06:32 02/13/21 06:32 02/13/21 06:32 02/13/21 06:32 Height: 5 ft 9 in Weight (kg): 101 kg Body Mass Index: 32.8 BMI Classification: Obese - NPO >8 hours Home Medications and Allergies Home Medications: Ambulatory Orders Fluticasone 44 Mcg [Flovent] 2 puffs INH BID 02/13/21 Iron,Carbonyl [Carbonyl Iron] 1 tab PO DAILY 02/13/21 Aspirin [Adult Low Dose Aspirin EC] 81 mg PO DAILY 02/12/16 Cholecalciferol [Vitamin D3] 2,000 unit PO DAILY 02/12/16 Cyanocobalamin (Vitamin B-12) [Vitamin B12] 1,000 mcg PO DAILY 02/12/16 Isosorbide Mononitrate ER [Imdur] 60 mg PO DAILY 02/12/16 Losartan Potassium 50 mg PO DAILY 02/12/16 Pantoprazole Sodium [Protonix] 40 mg PO DAILY 02/12/16 atenoloL [Atenolol] 12.5 mg PO DAILY 02/12/16 Amlodipine Besylate [Norvasc] 5 mg PO BID 09/23/20 Metronidazole 1% Gel [Metrogel] 1 applic TOP BID 09/23/20 Propylene Glycol [Systane Balance] 1 drops EACHEYE BID 09/23/20 Rivaroxaban [Xarelto] 20 mg PO QPM 09/23/20 Rosuvastatin Calcium [Crestor] 5 mg PO QPM 09/23/20 Ubidecarenone [Co Q-10] 200 mg PO DAILY 09/23/20 Albuterol Sulfate [Proair Hfa Inhaler] 1 - 2 puffs INH Q4H PRN 10/06/20 Fluticasone 44 Mcg [Flovent] 2 puffs INH BID 02/13/21 Iron,Carbonyl [Carbonyl Iron] 1 tab PO DAILY 02/13/21 Allergies/Adverse Reactions: Allergies Allergy/AdvReac Type Severity Reaction Status Date / Time No Known Drug Allergies Allergy Verified 02/12/16 11:07 Anes History & Medical History - Anesthetic History Anesthesia Complications: reports: No previous complications - Medical History Cardiovascular: reports: High cholesterol, Coronary artery disease, Atrial fibrillation, Murmur, Arrhythmia Pulmonary: reports: Asthma, Shortness of breath, Sleep apnea, CPAP use Gastrointestinal: reports: GERD, Hiatal hernia, Colon polyps, Chronic constipation, Cholelithiasis Urinary: reports: None Neuro: reports: None Musculoskeletal: reports: Osteoarthritis Endocrine/Autoimmune: reports: None Blood Disorders: reports: None Skin: reports: Psoriasis Smoking Status: Never smoker Psychosocial: reports: No issues indicated History of Cancer?: No - Surgical History General: reports: Cholecystectomy, Hiatal hernia repair, Colonoscopy, EGD Cardiothoracic: reports: Coronary stent Orthopedic: reports: Carpal Tunnel surgery Exam General: Alert, Oriented x3, Cooperative, No acute distress Dental: Poor dentition Mouth Openin Fingerbreadth Neck Mobility: Normal Mallampati classification: III Thyromental Distance: less than 4 cm Mental/Cognitive Status: Alert/Oriented X3, Normal for patient Plan Anesthesia Type: General, Total IV Consent for Procedure(s) Verified and Reviewed: Yes Code Status: Attempt Resuscitation ASA classification: 3-Severe systemic disease Is this case an emergency?: No
[2021-02-13 08:25] VITALS: BP 148/81
--- NOTE | 2021-02-13 15:13 | ANESTHESIA POST OP EVALUATION ---
Anesthesia Post Eval - Post Anesthesia Eval Vitals: Last Vital Signs Temp 36.5 C 02/13/21 08:06 Pulse 59 L 02/13/21 08:24 Resp 16 02/13/21 08:24 BP 148/81 H 02/13/21 08:24 Pulse Ox 95 02/13/21 08:24 CV Function Including HR & BP: Stable Pain Control: Satisfactory Nausea & Vomiting: Negative Mental Status: Baseline Respiratory Status: Airway Patent Hydration Status: Satisfactory Anesthesia Complications: None
== END 2021-02-13 06:25 | disposition home or self-care (01) ==
LOC: SDS 06:24
PROVIDERS: ATTEND Surgery
PROC: 0DB38ZX Excision of Lower Esophagus, Via Natural or Artificial Opening Endoscopic, Diagnostic (ICD-10-PCS; principal; 2021-02-13 07:30)
DX: D64.9 Anemia, unspecified (principal); K44.9 Diaphragmatic hernia without obstruction or gangrene; K21.9 Gastro-esophageal reflux disease without esophagitis; R93.3 Abnormal findings on diagnostic imaging of other parts of digestive tract; G47.33 Obstructive sleep apnea (adult) (pediatric); I25.10 Atherosclerotic heart disease of native coronary artery without angina pectoris; I10 Essential (primary) hypertension
CPT/HCPCS: 43239; J7120

== ENCOUNTER 2021-07-29 08:32 | Outpatient (CLI) | payer MEDICARE, OTHER ==
[2021-07-29 12:13] LABS: BASOPHILS # (AUTO) 0.1 10^3/uL (0.0-0.1); BASOPHILS % (AUTO) 0.9 %; EOSINOPHILS # (AUTO) 0.2 10^3/uL (0.0-0.7); EOSINOPHILS % (AUTO) 2.7 %; HCT - HEMATOCRIT 44.3 % (42.0-52.0); HGB - HEMOGLOBIN 14.1 g/dL (14.0-18.0); LYMPHOCYTES # (AUTO) 1.3 10^3/uL (1.5-3.5); LYMPHOCYTES % (AUTO) 16.5 %; MEAN CORPUSCULAR HEMOGLOBIN 31.3 pg (27.0-31.0); MEAN CORPUSCULAR HGB CONC 31.8 g/dL (32.0-36.0); MEAN CORPUSCULAR VOLUME 98.4 fL (80.0-94.0); MEAN PLATELET VOLUME 9.8 fL (7.4-11.4); MONOCYTES # (AUTO) 0.7 10^3/uL (0.0-1.0); MONOCYTES % (AUTO) 9.7 %; NEUTROPHILS # (AUTO) 5.3 10^3/uL (1.5-6.6); NEUTROPHILS % (AUTO) 69.8 %; PLT - PLATELET COUNT 263 10^3/uL (130-450); RED CELL DISTRIBUTION WIDTH 13.3 % (12.0-15.0); WHITE BLOOD COUNT 7.6 x10^3/uL (4.8-10.8)
[2021-07-29 12:55] LABS: ALKALINE PHOSPHATASE 87 IU/L (42-121); ALT ALANINE AMINOTRANSFERASE 15 IU/L (10-60); AST ASPARTATE AMINOTRANSFERASE 17 IU/L (10-42); BILIRUBIN,TOTAL 0.9 mg/dL (0.2-1.0); BUN - BLOOD UREA NITROGEN 37 mg/dL (6-20); CALCIUM 9.6 mg/dL (8.5-10.3); CARBON DIOXIDE - CO2 30 mmol/L (21-32); CHLORIDE 105 mmol/L (101-111); CREATININE 1.1 mg/dL (0.6-1.2); GFR - MDRD 65 (>89); GLUCOSE 105 mg/dL (70-100); POTASSIUM 4.6 mmol/L (3.5-5.0); SODIUM 145 mmol/L (135-145); TOTAL PROTEIN 7.1 g/dL (6.7-8.2)
[2021-07-29 12:56] LABS: ALBUMIN 4.3 g/dL (3.2-5.5); ALBUMIN/GLOBULIN RATIO 1.5 (1.0-2.2); CHOL/HDL RATIO 2.9 (<5.0); CHOLESTEROL 133 mg/dL; HDL CHOLESTEROL 46 mg/dL; LDL CHOLESTEROL,CALCULATED 76 mg/dL; LDL/HDL RATIO 1.7 (<3.6); TRIGLYCERIDES 55 mg/dL; VLDL CHOLESTEROL 11 mg/dL
[2021-07-29 13:00] LABS: FERRITIN 63.2 ng/mL (23.9-336.2)
== END 2021-07-29 08:33 | disposition home or self-care (01) ==
LOC: LAB.N 08:32
PROVIDERS: ATTEND Physician Assistant Medical
DX: E78.5 Hyperlipidemia, unspecified (principal); R73.9 Hyperglycemia, unspecified; E53.8 Deficiency of other specified B group vitamins; D64.9 Anemia, unspecified
CPT/HCPCS: 36415; 80053; 80061; 82607; 82728; 83721; 85025

== ENCOUNTER 2022-01-28 08:46 | Outpatient (CLI) | payer MEDICARE, OTHER ==
[2022-01-28 12:12] LABS: BASOPHILS # (AUTO) 0.1 10^3/uL (0.0-0.1); BASOPHILS % (AUTO) 1.2 %; EOSINOPHILS # (AUTO) 0.2 10^3/uL (0.0-0.7); EOSINOPHILS % (AUTO) 2.5 %; HCT - HEMATOCRIT 47.4 % (42.0-52.0); HGB - HEMOGLOBIN 15.3 g/dL (14.0-18.0); LYMPHOCYTES # (AUTO) 1.2 10^3/uL (1.5-3.5); LYMPHOCYTES % (AUTO) 13.3 %; MEAN CORPUSCULAR HEMOGLOBIN 31.7 pg (27.0-31.0); MEAN CORPUSCULAR HGB CONC 32.3 g/dL (32.0-36.0); MEAN CORPUSCULAR VOLUME 98.3 fL (80.0-94.0); MONOCYTES # (AUTO) 0.9 10^3/uL (0.0-1.0); MONOCYTES % (AUTO) 9.6 %; NEUTROPHILS # (AUTO) 6.6 10^3/uL (1.5-6.6); NEUTROPHILS % (AUTO) 73.1 %; PLT - PLATELET COUNT 299 10^3/uL (130-450); RED BLOOD COUNT 4.82 10^6/uL (4.70-6.10); RED CELL DISTRIBUTION WIDTH 13.5 % (12.0-15.0)
[2022-01-28 12:26] LABS: ALBUMIN 4.2 g/dL (3.2-5.5); ALBUMIN/GLOBULIN RATIO 1.2 (1.0-2.2); ALKALINE PHOSPHATASE 95 IU/L (42-121); ALT ALANINE AMINOTRANSFERASE 15 IU/L (10-60); AST ASPARTATE AMINOTRANSFERASE 16 IU/L (10-42); BILIRUBIN,TOTAL 1.5 mg/dL (0.2-1.0); BUN - BLOOD UREA NITROGEN 29 mg/dL (6-20); CALCIUM 9.5 mg/dL (8.5-10.3); CARBON DIOXIDE - CO2 28 mmol/L (21-32); CHLORIDE 103 mmol/L (101-111); CHOL/HDL RATIO 3.2 (<5.0); CHOLESTEROL 144 mg/dL; CREATININE 1.1 mg/dL (0.6-1.2); GFR - MDRD 65 (>89); GLUCOSE 113 mg/dL (70-100); HDL CHOLESTEROL 45 mg/dL; LDL CHOLESTEROL,CALCULATED 89 mg/dL; POTASSIUM 4.3 mmol/L (3.5-5.0); SODIUM 139 mmol/L (135-145); TOTAL PROTEIN 7.6 g/dL (6.7-8.2); TRIGLYCERIDES 50 mg/dL; VLDL CHOLESTEROL 10 mg/dL
== END 2022-01-28 08:47 | disposition home or self-care (01) ==
LOC: LAB.N 08:46
PROVIDERS: ATTEND Physician Assistant Medical
DX: I25.10 Atherosclerotic heart disease of native coronary artery without angina pectoris (principal); D64.9 Anemia, unspecified
CPT/HCPCS: 36415; 80053; 80061; 83721; 85025

== ENCOUNTER 2022-04-13 08:00 | Outpatient (CLI) | payer MEDICARE, OTHER ==
[2022-04-13 12:22] LABS: BASOPHILS # (AUTO) 0.1 10^3/uL (0.0-0.1); BASOPHILS % (AUTO) 1.2 %; EOSINOPHILS # (AUTO) 0.2 10^3/uL (0.0-0.7); HCT - HEMATOCRIT 44.3 % (42.0-52.0); HGB - HEMOGLOBIN 14.6 g/dL (14.0-18.0); LYMPHOCYTES # (AUTO) 0.8 10^3/uL (1.5-3.5); LYMPHOCYTES % (AUTO) 10.3 %; MEAN CORPUSCULAR HEMOGLOBIN 31.7 pg (27.0-31.0); MEAN CORPUSCULAR VOLUME 96.3 fL (80.0-94.0); MEAN PLATELET VOLUME 9.5 fL (7.4-11.4); MONOCYTES # (AUTO) 0.8 10^3/uL (0.0-1.0); MONOCYTES % (AUTO) 9.6 %; NEUTROPHILS # (AUTO) 6.1 10^3/uL (1.5-6.6); NEUTROPHILS % (AUTO) 75.5 %; PLT - PLATELET COUNT 293 10^3/uL (130-450); RED CELL DISTRIBUTION WIDTH 13.5 % (12.0-15.0); WHITE BLOOD COUNT 8.1 x10^3/uL (4.8-10.8)
[2022-04-13 12:36] LABS: ALBUMIN 3.8 g/dL (3.2-5.5); ALBUMIN/GLOBULIN RATIO 1.2 (1.0-2.2); CALCIUM 9.2 mg/dL (8.5-10.3); CREATININE 1.1 mg/dL (0.6-1.2); TOTAL PROTEIN 7.1 g/dL (6.7-8.2)
== END 2022-04-13 23:59 | disposition home or self-care (01) ==
LOC: LAB.N 08:00
PROVIDERS: ATTEND Nurse Practitioner
DX: K21.9 Gastro-esophageal reflux disease without esophagitis (principal)
CPT/HCPCS: 36415; 80053; 82150; 83690; 85025

== ENCOUNTER 2022-05-22 08:00 | Outpatient (CLI) | payer MEDICARE, OTHER | END 2022-05-22 23:59 | disposition home or self-care (01) | LOC: LAB.N 08:00 | PROVIDERS: ATTEND Nurse Practitioner | DX: B37.0 Candidal stomatitis (principal) | CPT/HCPCS: 87101 ==

== ENCOUNTER 2022-07-29 07:41 | Outpatient (CLI) | payer MEDICARE, OTHER ==
[2022-07-29 12:02] LABS: BASOPHILS # (AUTO) 0.1 10^3/uL (0.0-0.1); BASOPHILS % (AUTO) 1.4 %; EOSINOPHILS # (AUTO) 0.3 10^3/uL (0.0-0.7); EOSINOPHILS % (AUTO) 3.9 %; HCT - HEMATOCRIT 41.8 % (42.0-52.0); HGB - HEMOGLOBIN 13.3 g/dL (14.0-18.0); LYMPHOCYTES # (AUTO) 1.1 10^3/uL (1.5-3.5); LYMPHOCYTES % (AUTO) 12.5 %; MEAN CORPUSCULAR HEMOGLOBIN 31.2 pg (27.0-31.0); MEAN CORPUSCULAR HGB CONC 31.8 g/dL (32.0-36.0); MEAN CORPUSCULAR VOLUME 98.1 fL (80.0-94.0); MEAN PLATELET VOLUME 9.4 fL (7.4-11.4); MONOCYTES # (AUTO) 0.8 10^3/uL (0.0-1.0); PLT - PLATELET COUNT 309 10^3/uL (130-450); RED BLOOD COUNT 4.26 10^6/uL (4.70-6.10); RED CELL DISTRIBUTION WIDTH 14.1 % (12.0-15.0); WHITE BLOOD COUNT 8.4 x10^3/uL (4.8-10.8)
[2022-07-29 12:36] LABS: ALBUMIN 3.9 g/dL (3.2-5.5); ALBUMIN/GLOBULIN RATIO 1.1 (1.0-2.2); ALKALINE PHOSPHATASE 74 IU/L (42-121); ALT ALANINE AMINOTRANSFERASE 13 IU/L (10-60); AST ASPARTATE AMINOTRANSFERASE 16 IU/L (10-42); BUN - BLOOD UREA NITROGEN 28 mg/dL (6-20); CALCIUM 9.1 mg/dL (8.5-10.3); CARBON DIOXIDE - CO2 28 mmol/L (21-32); CHLORIDE 102 mmol/L (101-111); CHOL/HDL RATIO 2.9 (<5.0); CHOLESTEROL 130 mg/dL; CREATININE 1.1 mg/dL (0.6-1.2); GFR - MDRD 65 (>89); GLUCOSE 113 mg/dL (70-100); HDL CHOLESTEROL 45 mg/dL; POTASSIUM 4.2 mmol/L (3.5-5.0); SODIUM 138 mmol/L (135-145); TOTAL PROTEIN 7.3 g/dL (6.7-8.2); TRIGLYCERIDES 39 mg/dL
== END 2022-07-29 07:42 | disposition home or self-care (01) ==
LOC: LAB.N 07:41
PROVIDERS: ATTEND Physician Assistant Medical
DX: E78.5 Hyperlipidemia, unspecified (principal); D64.9 Anemia, unspecified
CPT/HCPCS: 36415; 80053; 80061; 82607; 83721; 85025

== ENCOUNTER 2023-01-11 09:36 | Outpatient (CLI) | payer MEDICARE, OTHER ==
[2023-01-11 12:14] LABS: CREATININE 1.1 mg/dL (0.6-1.2)
== END 2023-01-11 09:37 | disposition home or self-care (01) ==
LOC: LAB.N 09:36
PROVIDERS: ATTEND Internal Medicine Critical Care Medicine
DX: R60.1 Generalized edema (principal)
CPT/HCPCS: 36415; 82565; 83880

== ENCOUNTER 2023-02-19 09:09 | Outpatient (CLI) | payer MEDICARE, OTHER ==
[2023-02-19 19:07] LABS: BASOPHILS # (AUTO) 0.1 10^3/uL (0.0-0.1); BASOPHILS % (AUTO) 1.2 %; EOSINOPHILS # (AUTO) 0.2 10^3/uL (0.0-0.7); HCT - HEMATOCRIT 46.3 % (42.0-52.0); HGB - HEMOGLOBIN 14.6 g/dL (14.0-18.0); LYMPHOCYTES % (AUTO) 13.6 %; MEAN CORPUSCULAR HEMOGLOBIN 30.4 pg (27.0-31.0); MEAN CORPUSCULAR HGB CONC 31.5 g/dL (32.0-36.0); MEAN CORPUSCULAR VOLUME 96.3 fL (80.0-94.0); MEAN PLATELET VOLUME 9.5 fL (7.4-11.4); MONOCYTES # (AUTO) 0.9 10^3/uL (0.0-1.0); MONOCYTES % (AUTO) 11.5 %; NEUTROPHILS # (AUTO) 5.3 10^3/uL (1.5-6.6); NEUTROPHILS % (AUTO) 70.6 %; PLT - PLATELET COUNT 267 10^3/uL (130-450); RED BLOOD COUNT 4.81 10^6/uL (4.70-6.10); RED CELL DISTRIBUTION WIDTH 14.6 % (12.0-15.0); WHITE BLOOD COUNT 7.6 x10^3/uL (4.8-10.8)
[2023-02-19 19:14] LABS: PT - PROTHROMBIN TIME 21.6 secs (9.9-12.6)
[2023-02-19 19:55] LABS: ALBUMIN 3.8 g/dL (3.2-5.5); ALKALINE PHOSPHATASE 99 IU/L (42-121); ALT ALANINE AMINOTRANSFERASE 14 IU/L (10-60); AST ASPARTATE AMINOTRANSFERASE 17 IU/L (10-42); BILIRUBIN,TOTAL 1.4 mg/dL (0.2-1.0); BUN - BLOOD UREA NITROGEN 18 mg/dL (6-20); CALCIUM 9.1 mg/dL (8.5-10.3); CARBON DIOXIDE - CO2 27 mmol/L (21-32); CHLORIDE 105 mmol/L (101-111); CHOL/HDL RATIO 3.2 (<5.0); CHOLESTEROL 143 mg/dL; CREATININE 1.1 mg/dL (0.6-1.2); GFR - MDRD 65 (>89); GLUCOSE 106 mg/dL (70-100); HDL CHOLESTEROL 45 mg/dL; LDL CHOLESTEROL,CALCULATED 87 mg/dL; LDL/HDL RATIO 1.9 (<3.6); POTASSIUM 4.4 mmol/L (3.5-5.0); SODIUM 138 mmol/L (135-145); TOTAL PROTEIN 7.8 g/dL (6.7-8.2); TRIGLYCERIDES 53 mg/dL; VLDL CHOLESTEROL 11 mg/dL
== END 2023-02-19 09:10 | disposition home or self-care (01) ==
LOC: LAB.N 09:09
PROVIDERS: ATTEND Nurse Practitioner
DX: E78.5 Hyperlipidemia, unspecified (principal); Z51.81 Encounter for therapeutic drug level monitoring; I48.0 Paroxysmal atrial fibrillation
CPT/HCPCS: 36415; 80053; 80061; 83721; 85025; 85610

== ENCOUNTER 2023-02-22 06:57 | Outpatient (CLI) | payer MEDICARE, OTHER ==
--- NOTE | 2023-02-22 13:57 | Ultrasound Report ---
PROCEDURE: Abdomen Limited INDICATIONS: RIGHT FLANK PAIN TECHNIQUE: Real-time focused scanning was performed of the abdomen, with image documentation. COMPARISONS: Limited abdominal ultrasound dated 06/04/2020, CT chest with contrast dated 05/01/2021 FINDINGS: Liver: Mildly increased echogenicity of the liver is consistent with fatty change. The small hemangi rui was not identified on the current study, but is well documented in the right lobe. Gallbladder: Absent. Biliary ducts: Intrahepatic bile ducts are non-dilated. Extrahepatic bile duct caliber measures 5.1 mm. Normal is 6-7 mm or less in diameter, or 10 mm or less post-cholecystectomy. Pancreas: Visualized portions of the pancreas are sonographically normal. Right kidney: Normal in size and echotexture. Right kidney measures 12.6 cm long. No hydronephrosis or nephrolithiasis. No solid masses. No complex renal cystic lesions which require follow-up. Miscellaneous: No free abdominal fluid. IMPRESSION: 1. Mild diffuse hepatic steatosis. 2. Remote cholecystectomy. 3. No dilated ducts. 4. Normal sized right kidney without hydronephrosis. Reviewed by: Gama Washburn MD on 02/22/2023 1:56 PM PDT Approved by: Gaam Washburn MD on 02/22/2023 1:56 PM PDT Station ID: [id number]
== END 2023-02-22 06:58 | disposition home or self-care (01) ==
LOC: DI 06:57
PROVIDERS: ATTEND Nurse Practitioner
DX: R10.9 Unspecified abdominal pain (principal); K76.0 Fatty (change of) liver, not elsewhere classified; Z90.49 Acquired absence of other specified parts of digestive tract

== ENCOUNTER 2023-04-29 09:09 | Outpatient (CLI) | payer MEDICARE, OTHER ==
--- NOTE | 2023-04-29 10:41 | Sleep Patient Instructions ---
Sleep Center Visit Summary - Patient Visit Information Reason for Visit: Initial Consultation - Patient Instructions Additional Instructions: You will continue with CPAP therapy with pressure set at 17/14 cmH2O. A supply prescription will be updated with your DME. We encourage you to continue to try to lose weight. Please follow up with the sleep care office in 1 year. - Clinic Information Contact: [facility] [address] [place] [address] [email or web address] T: [phone]
--- NOTE | 2023-04-29 10:46 | SLEEP CARE CONSULTATION ---
Information from patient questionnaire entered by Amando Bartlett. I have reviewed and concur with the information entered by Amando Bartlett. This document represents the service I personally performed and the decisions made by , Vanita Mendes ARNP. History of Present Illness Service Date and Time: 04/29/2023 0909 Reason for Visit: New patient, Previously diagnosed sleep apnea (on BIPAP) Chief Complaint: reports: Unrefreshed sleep, Other (UPDATE SUPPLIES) Date of Onset: 15 years since diagnosis Usual bedtime: 11PM Time it takes to fall asleep: 10MIN Snores at night: No Observed to quit breathing while asleep: Yes Sleeps alone due to snoring: No Number of times waking at night: 2 Reasons for waking at night: reports: Bathroom Toss, Turn, or Twitch while sleeping: Yes Recalls having dreams: Yes Usually gets out of bed at: 70AM Feels refreshed in the morning: Yes Morning headache: No Sleepy or fatigued during the day: Yes Ever fallen asleep while driving: No Takes day naps: Yes Dreams during day naps: No Prior sleep studies: Yes Additional HPI information: JEFFERY RAZO was previously diagnosed to have 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 I reviewed the records from [facility] and a note dated 01/05/2008 noted that he has moderate to severe complex obstructive sleep apnea per a sleep study done in 2007 showing 27 events per hour. - Parasomnia Symptoms Ever been unable to move upon waking from sleep: No Walks in sleep: No Talks in sleep: No Ever acted out dreams in sleep: No Ever felt weak in the knees when startled or emotional: No Bothered by creepy, crawly, restless sensations in legs: No Problems with memory or concentration: Yes CPAP Compliance Data - Data Reviewed with Patient Average duration of nightly device use: 8 hours 14 minutes Compliance rate %: 100 (90/ days used) Current pressure setting (cmH2O): Average residual AHI: 15.2 (unknown 14.1) Central apnea: 0.1 Obstructive apnea: 0.1 Hypopnea: 0.9 Average large leak: 94.6 L/min On Oxygen: Yes (2 L) Compliance data discussion: He has a ResMed AirCurve 10 BIPAP. He is using nasal pillows mask, Resmed P10. He is getting his supplies from [employer]. Subjective Patient concerns: reports: dry mouth, nose, throat (mouth is full of thick mucus in morning). denies: aerophagia, mask discomfort, air blowing in eyes, mask leak noise, condensation in mask/hose, nasal congestion, epistaxis Observed to snore while using device: No Current pressure setting perceived as: comfortable On therapy, patient: reports: sleeping better, awakening more refreshed, being more awake and alert during the day, more rested overall. denies: drowsiness while driving Initial Spring Sleepiness Scale score: 11 (04/28/23) Past Medical History Past Medical History: reports: Hypertension, Arthritis, Coronary Heart Disease, Arrythmia (Tachycardia; Watchman placed), Asthma, GERD, Other (LUNG DISEASE, Interstitial (hyperreactive); 2L oxygen NC with activity and nocturnal) Social History The patient's occupation is a RE. Patient is and lives in [place]. Have you smoked in the past 12 months: No Alcohol use: No Caffeine use: Yes Caffeine amount and frequency: 2 CUPS EVERY MORNING Family History Family history of sleep disordered breathing: Yes Family Hx Sleep Apnea: Sibling: Snoring Allergies and Home Medications Known drug allergies: No Drug allergies reviewed: Yes Home medication list reviewed: Yes (see updated list in EMR) Allergy and home medication list: Allergies No Known Drug Allergies Allergy (Verified 04/28/23 14:13) Review of Systems Weight loss over past 5 years: 5 Cardiovascular: reports: high blood pressure, irregular heart rate or pulse, leg or foot swelling Respiratory: reports: shortness of breath, sputum production Gastrointestinal: denies: heartburn Urinary: reports: frequency Neurological: denies: headaches Ear/Nose/Throat: reports: nasal congestion, sinus problems, nose bleeds, dry mouth/throat. denies: tonsillectomy Endocrine: reports: sluggishness Musculoskeletal: reports: joint pain, muscle pain or cramping Immunologic: reports: sneezing Physical Exam Vital signs obtained and entered by: AMANDO Alston MA Blood Pressure: 126/78 (LEFT ARM) Cuff size: regular Heart Rate: 74 O2 Saturation: 97 Height: 5 ft 9 in Weight: 226 lb 12.8 oz Body Mass Index: 33.5 BMI Classification: Obese Neck circumference: 17.5 Heart: irregular rhythm Lungs: clear bilaterally Impression and Plan 1. Complex obstructive Sleep Apnea-Hypopnea Syndrome, moderate, with good treatment compliance and good apnea control. On BIPAP therapy, the patient has better sleep quality and is more rested overall. I did receive some documents from his last sleep providers clinic up at [facility] which showed notes documenting that he has moderate obstructive sleep apnea. He has had some titration studies done up at [facility]. Patient is now on 2 L of oxygen per nasal cannula during activity and also overnight for last 3 weeks. He does have the adapter to have the oxygen through his BiPAP. I will update his prescription with [employer] [facility] so that he can continue to get supplies. He is currently looking for an oxygen supplier that he can rent a concentrator to use at home. Patient's apnea severity and rationale for treatment to reduce apnea, improve sleep quality and reduce cardiovascular and cerebrovascular events was reviewed. I also reviewed the benefit of consistent device use of CPAP for hypertension, cardiac disease (CHD) and gastric reflux. 2. Obesity, unspecified. Currently patients BMI is 33.5. Obesity increases the risk of apnea, CPAP pressure requirements and overall health risks especially cardiovascular and diabetes. Thus patient is advised to lose weight. 3. Hypoxemia, unspecified. He is on 2L/oxygen per NC 24/7, as needed. He states he especially needs the oxygen during activity and at night. * Continue BiPAP pressure at 17/14 cmH2O * Continue with 2L/oxygen per NC, * Update supplies * Notify me if snoring with mask or feeling that the pressure is too much or too little * Attempt to lose weight * Call this office if any problems using CPAP * Return for follow up in 1 year, or sooner if concerns arise Counseling Topics: Spare mask, Weight loss health impact Prescriptions: Device supplies Visit Type: In Office Time Spent with Patient (minutes): 44 Provider Statement: I spent 100% of the Face to Face Visit with the patient with greater than 50% spent counseling the patient and coordination of care.
[2023-04-29 10:55] VITALS: BP 126/78; O2SAT 97
== END 2023-04-29 09:10 | disposition home or self-care (01) ==
LOC: SC 09:09
PROVIDERS: ATTEND Nurse Practitioner Family
DX: G47.33 Obstructive sleep apnea (adult) (pediatric) (principal); E66.9 Obesity, unspecified; Z68.35 Body mass index [BMI] 35.0-35.9, adult; Z99.81 Dependence on supplemental oxygen
CPT/HCPCS: 99204; G0463; 99212

== ENCOUNTER 2023-05-31 08:00 | Outpatient (CLI) | payer MEDICARE, OTHER | END 2023-05-31 23:59 | disposition home or self-care (01) | LOC: LAB.N 08:00 | PROVIDERS: ATTEND Emergency Medicine | DX: R07.0 Pain in throat (principal) | CPT/HCPCS: 87070 ==

== ENCOUNTER 2023-08-09 09:53 | Emergency (ER) | payer MEDICARE, OTHER ==
[2023-08-09 10:29] LABS: BASOPHILS # (AUTO) 0.1 10^3/uL (0.0-0.1); BASOPHILS % (AUTO) 0.7 %; EOSINOPHILS # (AUTO) 0.1 10^3/uL (0.0-0.7); EOSINOPHILS % (AUTO) 0.9 %; HCT - HEMATOCRIT 46.2 % (42.0-52.0); HGB - HEMOGLOBIN 14.6 g/dL (14.0-18.0); LYMPHOCYTES # (AUTO) 0.7 10^3/uL (1.5-3.5); LYMPHOCYTES % (AUTO) 6.5 %; MEAN CORPUSCULAR HEMOGLOBIN 30.5 pg (27.0-31.0); MEAN CORPUSCULAR HGB CONC 31.6 g/dL (32.0-36.0); MEAN CORPUSCULAR VOLUME 96.5 fL (80.0-94.0); MEAN PLATELET VOLUME 9.1 fL (7.4-11.4); MONOCYTES # (AUTO) 1.3 10^3/uL (0.0-1.0); MONOCYTES % (AUTO) 12.4 %; NEUTROPHILS # (AUTO) 8.3 10^3/uL (1.5-6.6); PLT - PLATELET COUNT 258 10^3/uL (130-450); RED BLOOD COUNT 4.79 10^6/uL (4.70-6.10); RED CELL DISTRIBUTION WIDTH 13.9 % (12.0-15.0); WHITE BLOOD COUNT 10.4 x10^3/uL (4.8-10.8)
[2023-08-09 10:51] LABS: TROPONIN I HIGH SENSITIVITY 4.3 ng/L (2.3-19.7)
[2023-08-09 10:52] LABS: ALBUMIN 4.1 g/dL (3.2-5.5); ALBUMIN/GLOBULIN RATIO 1.3 (1.0-2.2); BILIRUBIN,TOTAL 1.8 mg/dL (0.2-1.0); CALCIUM 9.4 mg/dL (8.5-10.3); CREATININE 1.1 mg/dL (0.6-1.3); TOTAL PROTEIN 7.2 g/dL (6.4-8.9)
--- NOTE | 2023-08-09 11:02 | XRAY Report ---
PROCEDURE: Chest 1 View X-Ray INDICATIONS: Chest Pain TECHNIQUE: One view of the chest was acquired. COMPARISON: 09/24/2020 FINDINGS: Surgical changes and devices: None. Lungs and pleura: Moderate diffuse lung disease, with perihilar opacification as well. Suspected rig ht pleural thickening again seen. Mediastinum: Borderline heart size. Bones and chest wall: Degenerative changes. IMPRESSION: Moderate diffuse lung disease representing edema or infection, with perihilar opacities. Consider fut ure imaging surveillance to assess for resolution. Reviewed by: Misael Deluca MD on 08/09/2023 11:00 AM PST Approved by: Misael Deluca MD on 08/09/2023 11:00 AM PST Station ID: [id number]
--- NOTE | 2023-08-09 11:17 | ED Physician Documentation ---
PD HPI CHEST PAIN - Stated complaint Stated Complaint: CHEST/JAW/SHOULDER PX,PAINFUL BREATHING, - Chief complaint Chief Complaint: Cardiac - History obtained from History obtained from: Patient - Additional information Additional information: This is a medically complicated 78-year-old gentleman who has interstitial lung disease on 2 L of oxygen, has by his recollection moderate to severe aortic julita nosis, coronary disease with stenting, A-fib with a Watchman. Last night he was carrying a laundry basket and he was off of his oxygen and he developed substernal chest pressure radiating to the neck and anterior shoulders and back. It is been constant since then but waxing and waning, not worse with exertion but it is worse with deep breathing. He has more short of breath than normal. Denies cough. He has had 3 months worth of atraumatic left ankle swelling. He sees Dr. Scott at [facility] for cardiology and the aortic valve is being monitored but not yet to the point where he would need a TAVR. PD PAST MEDICAL HISTORY - Past Medical History Past Medical History: Yes Cardiovascular: Hypertension, High cholesterol, Coronary artery disease, Atrial fibrillation, Murmur, Arrhythmia Respiratory: Asthma, Sleep apnea, CPAP use Neuro: None Endocrine/Autoimmune: Other GI: GERD, Hiatal hernia, Chronic constipation, Cholelithiasis : None HEENT: Chronic vision loss Psych: None Musculoskeletal: Osteoarthritis Derm: Psoriasis - Past Surgical History Past Surgical History: Yes General: Bowel surgery, Hiatal hernia repair, Colonoscopy Ortho: Carpal Tunnel surgery Cardiovascular: Coronary stent - Present Medications Home Medications: Ambulatory Orders Medication Instructions Recorded Confirmed Aspirin [Adult Low Dose Aspirin EC] 81 mg PO DAILY 02/12/16 08/09/23 Cholecalciferol [Vitamin D3] 2,000 unit PO DAILY 02/12/16 08/09/23 Cyanocobalamin (Vitamin B-12) 1,000 mcg PO DAILY 02/12/16 08/09/23 [Vitamin B12] Isosorbide Mononitrate ER [Imdur] 60 mg PO DAILY 02/12/16 08/09/23 Losartan Potassium 50 mg PO BID 02/12/16 08/09/23 Pantoprazole Sodium [Protonix] 40 mg PO BID 02/12/16 08/09/23 atenoloL [Atenolol] 12.5 mg PO DAILY 02/12/16 08/09/23 Amlodipine Besylate [Norvasc] 5 mg PO BID 09/23/20 08/09/23 Propylene Glycol [Systane Balance] 1 drops EACHEYE BID PRN 09/23/20 08/09/23 Rosuvastatin Calcium [Crestor] 5 mg PO QPM 09/23/20 08/09/23 Ubidecarenone [Co Q-10] 200 mg PO DAILY 09/23/20 08/09/23 Albuterol Sulfate [Proair Hfa 1 - 2 puffs INH Q4H PRN 10/06/20 08/09/23 Inhaler] Iron,Carbonyl [Carbonyl Iron] 1 tab PO DAILY 02/13/21 08/09/23 Furosemide [Lasix] 20 mg PO DAILY 08/09/23 08/09/23 - Allergies Allergies/Adverse Reactions: Allergies Allergy/AdvReac Type Severity Reaction Status Date / Time No Known Drug Allergies Allergy Verified 08/09/23 10:08 - Social History Does the pt smoke?: No Smoking Status: Never smoker Does the pt drink ETOH?: No Does the pt have substance abuse?: No - Immunizations Immunizations are current?: Yes PD ED PE NORMAL - Vitals Vital signs reviewed: Yes - General General: Alert and oriented X 3, No acute distress - HEENT HEENT: PERRL, EOMI - Neck Neck: Supple, no meningeal sign, No bony TTP - Cardiac Cardiac: Other (Irregularly irregular with decrescendo holosystolic 3 out of 6 murmur heard best at the left upper sternal border) - Respiratory Respiratory: Other (Right greater than left basilar crackles nonlabored) - Abdomen Abdomen: Normal bowel sounds, Soft, Non tender - Derm Derm: Normal color, Warm and dry - Extremities Extremities: Other (Focal swelling about the left ankle, nontender, no infection.) - Neuro Neuro: Alert and oriented X 3, Normal speech Results - Vitals Vitals: Vital Signs - 24 hr 08/09/23 08/09/23 08/09/23 10:08 10:34 11:20 Temperature 36.9 C 36.6 C Heart Rate 90 80 82 Respiratory 22 24 22 Rate Blood Pressure 155/80 H 130/86 H 144/84 H O2 Saturation 94 93 94 If not protocol 2 2 : Oxygen Flow, liters/minute 08/09/23 11:59 Temperature Heart Rate 97 Respiratory 18 Rate Blood Pressure 143/106 H O2 Saturation 93 If not protocol 2 : Oxygen Flow, liters/minute Oxygen O2 Source Nasal cannula - EKG (time done) 1000 EKG releavant findings:: EKG personally interpreted by author of this note. Relevant findings are: Rate: Rate (enter#) (98) Rhythm: Atrial fibrillation [place]: Normal QRS: Normal Ischemia: Non specific changes. No: ST elevation c/w ischemia, ST depression - Labs Labs: Laboratory Tests 08/09/23 08/09/23 08/09/23 10:20 10:20 12:34 WBC 10.4 RBC 4.79 Hgb 14.6 Hct 46.2 MCV 96.5 H MCH 30.5 MCHC 31.6 L RDW 13.9 Plt Count 258 MPV 9.1 Neut # (Auto) 8.3 H Lymph # (Auto) 0.7 L [place] # (Auto) 1.3 H Eos # (Auto) 0.1 Baso # (Auto) 0.1 Absolute Nucleated RBC 0.00 Nucleated RBC % 0.0 Sodium 137 Potassium 4.0 Chloride 102 Carbon Dioxide 28 Anion Gap 7.0 BUN 19 Creatinine 1.1 Estimated GFR (MDRD) 65 L Glucose 113 H Calcium 9.4 Total Bilirubin 1.8 H AST 12 ALT 9 L Alkaline Phosphatase 116 Troponin I High Sens 4.3 4.9 Total Protein 7.2 Albumin 4.1 Globulin 3.1 Albumin/Globulin Ratio 1.3 Lipase 10 L - Rads (name of study) Single view chest x-ray demonstrating diffuse lung disease Relevant Findings:: Final report received, EMP independent interpretation of reese t CTPA showing moderate diffuse lung disease, hilar adenopathy, cardiomegaly and coronary calcifications Relevant Findings:: Final report received, EMP independent interpretation of test PD Medical Decision Making - ED course ED course: 78-year-old gentleman with medical complexity multiple comorbidities including but not limited to A-fib with watchman, interstitial lung disease, coronary disease, and moderate to severe presents with chest pain. It is reassuring that its been going on for over 12 hours negative troponin and a nonischemic EKG but given his medical complexity after my initial evaluation I discussed the case by phone with Dr. Scott, his stationary engineer refrigeration. He stated he wanted to look at his records and call me back, I had not heard from him but later was called by the hospitalist to there who stated that the stationary engineer refrigeration wanted him transferred over for left heart cath. Accepted by Dr. Hayes to [facility] approximately 12:30 PM. He and I agreed to hold off on anticoagulation now given the patient's personal history of hemoptysis necessitating the watchman in the first place and no objective evidence of ischemia at this time. In the interim we did do diagnostic testing including CBC showing basically normal findings, unremarkable CMP, and CT angiography of the chest. Formal read is pending on transfer, but I do not see PE personally. 1:08 PM I was notified that Dr. Scott called and asked for the patient to be started on a heparin drip. Departure - Departure Disposition: 02 Transfer Acute Care Hosp Clinical Impression: ILD (interstitial lung disease) Chest pain Qualifiers: Chest pain type: unspecified Qualified Code(s): R07.9 - Chest pain, unspecified Aortic stenosis Qualifiers: Cardiac valve disease etiology: etiology unspecified Qualified Code(s): I35.0 - Nonrheumatic aortic (valve) stenosis CAD (coronary artery disease) Qualifiers: Coronary Disease-Associated Artery/Lesion type: false pass artery [place] vs. transplanted heart: false pass heart Associated angina: unspecified whether angina present Qualified Code(s): I25.10 - Atherosclerotic heart disease of false pass coronary artery without angina pectoris Afib Qualifiers: Atrial fibrillation type: unspecified Qualified Code(s): I48.91 - Unspecified atrial fibrillation Condition: Stable Record reviewed to determine appropriate education?: Yes Forms: PCP List
[2023-08-09] MEDS ORDERED: ASPIRIN CHEW 81 MG TABLET PO STA (12:33)
[2023-08-09] MEDS ORDERED: METOPROLOL 5 MG/5 ML VIAL IVP STA (12:33)
[2023-08-09] MEDS ORDERED: NITROGLYCERIN 2% PASTE TOP STA (12:33)
--- NOTE | 2023-08-09 12:44 | CT Report ---
PROCEDURE: ANGIO CHEST W/WO INDICATIONS: cp, pe protoccol CONTRAST: 80ml omni 300 TECHNIQUE: After the administration of intravenous contrast, 2 mm axial images were acquired from the pulmonary apices to the posterior costophrenic angles during the arterial phase. In addition, 1 mm lung kernel and 5 mm soft tissue kernel reconstructions were performed. 3-dimensional coronal oblique maximum int ensity projection (MIP) reformats, 8 mm axial MIP, and 5 mm coronal and sagittal MPR reformats were t hen performed through the thorax. For radiation dose reduction, the following was used: automated exp osure control, adjustment of mA and/or kV according to patient size. COMPARISON: Same-day radiograph, chest CT 01/29/2021 FINDINGS: Image quality: Good Lungs and pleura:Diffuse septal thickening, groundglass opacities, and small nodular areas of consoli dation. No drainable pleural effusion. Right pleural thickening. Mediastinum, heart, and esophagus: No pulmonary embolism is identified. There is a moderate hiatal he rnia with distal esophageal fluid. Postsurgical changes. Cardiomegaly. Coronary calcifications. Left atrial appendage occluding device. There are mildly enlarged hilar and mediastinal lymph nodes, sligh tly larger than prior imaging in 2020, for example AP window node measures 1.4 cm in short axis. Chest wall and thyroid: No actionable thyroid nodule identified. Chest wall is unremarkable Upper abdomen: Left renal cysts. No gross abnormality otherwise on this arterial phase study. Cholecy stectomy clips. Bones: Degenerative changes. IMPRESSION: No acute pulmonary embolism. Moderate diffuse lung disease. No drainable pleural effusion. Findings could represent edema or infec tion. Mildly enlarged hilar mediastinal lymph nodes, possibly reactive, malignancy is also a differential c onsideration. Consider future surveillance imaging for the above findings. Cardiomegaly and coronary calcifications. Other findings as above. Reviewed by: Misael Deluca MD on 08/09/2023 12:42 PM PST Approved by: Misael Deluca MD on 08/09/2023 12:42 PM PST Station ID: [id number]
[2023-08-09] MEDS ORDERED: HEPARIN 25000UNITS/500ML (D5W) 25,000 UNIT/500 ML BAG IV SCH (14:00)
[2023-08-09 15:29] VITALS: BP 109/64; O2SAT 92
[2023-08-09] MEDS ORDERED: iohexoL-300 100 ML VIAL IVP ONE (18:13)
== END 2023-08-09 15:40 | disposition short-term general hospital (02) ==
LOC: ED 09:53
DX: J84.9 Interstitial pulmonary disease, unspecified (principal); R07.9 Chest pain, unspecified; I35.0 Nonrheumatic aortic (valve) stenosis; I25.10 Atherosclerotic heart disease of native coronary artery without angina pectoris; I48.91 Unspecified atrial fibrillation; I10 Essential (primary) hypertension; E78.00 Pure hypercholesterolemia, unspecified; Z99.81 Dependence on supplemental oxygen; Z79.82 Long term (current) use of aspirin; Z79.899 Other long term (current) drug therapy
CPT/HCPCS: 36415; 71045; 71275; 80053; 83690; 84484; 85025; 93005; 96374; 96375; 99285; A9270; Q9967

== ENCOUNTER 2023-08-26 08:00 | Outpatient (CLI) | payer MEDICARE, OTHER | END 2023-08-26 08:01 | disposition home or self-care (01) | LOC: LAB.N 08:00 | PROVIDERS: ATTEND Physician Assistant Medical | DX: J84.9 Interstitial pulmonary disease, unspecified (principal) ==

== ENCOUNTER 2023-09-01 08:29 | Outpatient (CLI) | payer MEDICARE, OTHER ==
--- NOTE | 2023-09-01 08:49 | Sleep Patient Instructions ---
Sleep Center Visit Summary - Patient Visit Information Reason for Visit: 2 month followup - Patient Instructions Additional Instructions: You were here for follow up of BIPAP therapy. You will be continued on BiPAP therapy with pressure at 16/12 cmH2O. You should follow up with sleep care in 12 months. You may contact us sooner for any questions or concerns. - Clinic Information Contact: [facility] [address] [place] [address] [email or web address] T: [phone]
--- NOTE | 2023-09-01 08:53 | SLEEP CARE CONSULTATION ---
Information from patient questionnaire entered by Amando Bartlett. I have reviewed and concur with the information entered by Amando Bartlett. This document represents the service I personally performed and the decisions made by , Vanita Mendes ARNP. History of Present Illness Service Date and Time: 09/01/2023828 Previous diagnosis: Severe, Obstructive Sleep Apnea-Hypopnea Syndrome AHI: 37.4 (05/2023) Reason for follow up: other (2 MONTH F/U) Equipment type: BiPAP (RESMED) Equipment obtained from: Other ([employer]; getting supplies as needed) Mask style: Nasal pillows (Hol[place] II) Backup mask available: Yes Last cushion change: 2 weeks Prior sleep studies: Yes Year and Where: several in past, original not yet available 2006 Type of Sleep Study: Polysomnography (SPLIT NIGHT COMPLETED 06/10/23) HPI additional information: JEFFERY RAZO was diagnosed to have severe, AHI 37.4, obstructive sleep apnea- hypopnea syndrome and returned today for BIPAP therapy 2 month follow-up. Sleep Study - Results Type of Sleep Study: Polysomnography (SPLIT NIGHT COMPLETED 06/10/23) Prior sleep studies: Yes Year and Where: several in past, original not yet available 2006 CPAP Compliance Data - Data Reviewed with Patient Average duration of nightly device use: 9 hours 4 mins Compliance rate %: 100 (07/01/23-08/29/23; 60/60 days used) Current pressure setting (cmH2O): 03/09 Average residual AHI: 2.3 Central apnea: 0.1 Obstructive apnea: 0.1 Hypopnea: 0.8 On Oxygen: Yes (2 L) Oxygen usage: Continuous (especially with activity) Subjective Patient concerns: reports: nasal congestion (has all the time). denies: aerophagia, mask discomfort, air blowing in eyes, mask leak noise, condensation in mask/hose, dry mouth, nose, throat, epistaxis Observed to snore while using device: No Current pressure setting perceived as: comfortable On therapy, patient: reports: sleeping better, awakening more refreshed, being more awake and alert during the day, more rested overall. denies: drowsiness while driving Initial Filer Sleepiness Scale score: 11 (04/28/23) Current Filer Sleepiness Scale score: 12 (09/01/23) Allergies and Home Medications Known drug allergies: No Drug allergies reviewed: Yes Home medication list reviewed: Yes (no changes) Allergy and home medication list: Allergies No Known Drug Allergies Allergy (Verified 08/31/23 08:40) Review of Systems Review of systems same as previous: No (bronchospasms, given steroids and improving) Physical Exam Vital signs obtained and entered by: AMANDO Alston MA Blood Pressure: 134/82 (LEFT ARM) Cuff size: regular Heart Rate: 81 O2 Saturation: 96 Height: 5 ft 9 in Weight: 220 lb 6.4 oz Body Mass Index: 32.5 BMI Classification: Obese Impression and Plan 1. Obstructive Sleep Apnea-Hypopnea Syndrome, severe, with good treatment compliance and good apnea control. On BIPAP therapy, the patient has better sleep quality and is more rested overall. Patient has significant improvement of their sleep apnea and is satisfied with current CPAP therapy. Patient denies problems with oral dryness, nasal congestion, epistaxis, skin irritation or aerophagia. Patient's apnea severity and rationale for treatment to reduce apnea, improve sleep quality and reduce cardiovascular and cerebrovascular events was reviewed. I also reviewed the benefit of consistent device use of BIPAP for hypertension, cardiac disease, arrhythmia and gastric reflux. 2. Nocturnal hypoxemia. Patient continues with 2L oxygen bled through BIPAP. He also uses his oxygen during the day, as needed. He has had some increase in his lung issues and has been taking steroids. He has a followup with pulmonology for his interstitial lung disease in September. 3. Obesity, unspecified. Currently patients BMI is 32.5. Obesity increases the risk of apnea, BIPAP pressure requirements and overall health risks especially cardiovascular and diabetes. Thus patient is advised to lose weight. * Continue BIPAP pressure at 16/12 cmH2O * Notify me if snoring with mask or feeling that the pressure is too much or too little * Attempt to lose weight * Call this office if any problems using BIPAP * Return for follow up in 12 months, or sooner if concerns arise Counseling Topics: Spare mask, Weight loss health impact Follow up with Sleep Care in: 1 year Visit Type: In Office Time Spent with Patient (minutes): 20 Provider Statement: I spent 100% of the Face to Face Visit with the patient with greater than 50% spent counseling the patient and coordination of care.
[2023-09-01 09:03] VITALS: BP 134/82; O2SAT 96
== END 2023-09-01 08:30 | disposition home or self-care (01) ==
LOC: SC 08:29
PROVIDERS: ATTEND Nurse Practitioner Family
DX: G47.33 Obstructive sleep apnea (adult) (pediatric) (principal); R09.02 Hypoxemia; E66.9 Obesity, unspecified; Z68.32 Body mass index [BMI] 32.0-32.9, adult
CPT/HCPCS: 99213; G0463; 99212

== ENCOUNTER 2023-09-17 14:19 | Emergency (ER) | payer MEDICARE, OTHER ==
[2023-09-17 14:33] VITALS: O2SAT 96
--- NOTE | 2023-09-17 18:01 | ED Physician Documentation ---
History of Present Illness - Stated complaint Stated Complaint: BILAT LEG RASH - Chief complaint Chief Complaint: General - History obtained from History obtained from: Patient - Additonal information Additional information: 78-year-old male with Past medical history of atrial fibrillation status post Watchman device no longer on anticoagulation, As well as aortic valve stenosis, presents with a bilateral lower extremity rash. He is seen in the clinic for a right lower leg rash yesterday and started on doxycycline for cellulitis however today he states he has a number of other spots that were not present yesterday And it is extending up the right leg and also present on the left. He notes no improvement in the original area of redness. Though this has not worsened either.He denies any fever or chills, no chest pain or difficulty breathing. Pain in leg is mild to moderate, no worsening yesterday. He denies any recent illness And otherwise feels well.. Review of Systems Constitutional: reports: Reviewed and negative Throat: reports: Reviewed and negative Cardiac: reports: Reviewed and negative Respiratory: reports: Reviewed and negative GI: reports: Reviewed and negative : reports: Reviewed and negative Skin: reports: Rash, Lesions Musculoskeletal: reports: Reviewed and negative Neurologic: reports: Reviewed and negative PD PAST MEDICAL HISTORY - Past Medical History Past Medical History: Yes Cardiovascular: Hypertension, High cholesterol, Coronary artery disease, Atrial fibrillation, Murmur, Arrhythmia Respiratory: Asthma, Sleep apnea, CPAP use Neuro: None Endocrine/Autoimmune: Other GI: GERD, Hiatal hernia, Chronic constipation, Cholelithiasis : None HEENT: Chronic vision loss Psych: None Musculoskeletal: Osteoarthritis Derm: Psoriasis - Past Surgical History Past Surgical History: Yes General: Bowel surgery, Hiatal hernia repair, Colonoscopy Ortho: Carpal Tunnel surgery Cardiovascular: Coronary stent - Present Medications Home Medications: Ambulatory Orders Medication Instructions Recorded Confirmed Aspirin [Adult Low Dose Aspirin EC] 81 mg PO DAILY 02/12/16 09/01/23 Cholecalciferol [Vitamin D3] 2,000 unit PO DAILY 02/12/16 09/01/23 Cyanocobalamin (Vitamin B-12) 1,000 mcg PO DAILY 02/12/16 09/01/23 [Vitamin B12] Isosorbide Mononitrate ER [Imdur] 60 mg PO DAILY 02/12/16 09/01/23 Losartan Potassium 50 mg PO BID 02/12/16 09/01/23 Pantoprazole Sodium [Protonix] 40 mg PO BID 02/12/16 09/01/23 atenoloL [Atenolol] 12.5 mg PO DAILY 02/12/16 09/01/23 Amlodipine Besylate [Norvasc] 5 mg PO BID 09/23/20 09/01/23 Propylene Glycol [Systane Balance] 1 drops EACHEYE BID PRN 09/23/20 09/01/23 Rosuvastatin Calcium [Crestor] 5 mg PO QPM 09/23/20 09/01/23 Ubidecarenone [Co Q-10] 200 mg PO DAILY 09/23/20 09/01/23 Albuterol Sulfate [Proair Hfa 1 - 2 puffs INH Q4H PRN 10/06/20 09/01/23 Inhaler] Iron,Carbonyl [Carbonyl Iron] 1 tab PO DAILY 02/13/21 09/01/23 Furosemide [Lasix] 20 mg PO DAILY 08/09/23 09/01/23 - Allergies Allergies/Adverse Reactions: Allergies Allergy/AdvReac Type Severity Reaction Status Date / Time No Known Drug Allergies Allergy Verified 09/17/23 14:25 - Social History Does the pt smoke?: No Smoking Status: Never smoker Does the pt drink ETOH?: No Does the pt have substance abuse?: No - Immunizations Immunizations are current?: Yes PD ED PE NORMAL - Vitals Vital signs reviewed: Yes - General General: Alert and oriented X 3, No acute distress, Well developed/nourished - HEENT HEENT: Atraumatic, Moist mucous membranes - Cardiac Cardiac: No gallop, No rub, Other (Irregular, history of A-fib, 2 out of 6 systolic murmur, history of aortic stenosis.) - Respiratory Respiratory: No respiratory distress, Clear bilaterally - Abdomen Abdomen: Normal bowel sounds, Soft, Non tender, Non distended - Derm Derm: Other (There is a vasculitic rash on both lower extremities, clusters of petechiae on the left foot and scattered minimally up the left leg, there are more lesions there is size between 1 and 3 mm on the right leg from foot to groin. mild erythema on sherwood with 4 blood filled blisters) - Extremities Extremities: No deformity, No tenderness to palpate, Normal ROM s pain, No edema, No calf tenderness / cord - Neuro Neuro: Alert and oriented X 3 Eye Opening: Spontaneous Motor: Obeys Commands Verbal: Oriented GCS Score: 15 - Psych Psych: Normal mood, Normal affect Results - Vitals Vitals: Vital Signs - 24 hr 09/17/23 09/17/23 14:25 18:11 Temperature 36.5 C 37.1 C Heart Rate 100 89 Respiratory 16 14 Rate Blood Pressure 140/90 H 115/97 H O2 Saturation 96 96 If not protocol 2 : Oxygen Flow, liters/minute Oxygen O2 Source Nasal cannula - Labs Labs: Laboratory Tests 09/17/23 09/17/23 09/17/23 18:13 18:13 19:52 WBC 7.7 RBC 4.64 L Hgb 14.1 Hct 44.2 MCV 95.3 H MCH 30.4 MCHC 31.9 L RDW 14.0 Plt Count 358 MPV 8.9 Neut # (Auto) 6.0 Lymph # (Auto) 0.7 L [place] # (Auto) 0.6 Eos # (Auto) 0.3 Baso # (Auto) 0.0 Absolute Nucleated RBC 0.00 Nucleated RBC % 0.0 ESR 46 H Sodium 135 Potassium 4.1 Chloride 99 L Carbon Dioxide 29 Anion Gap 7.0 BUN 18 Creatinine 1.0 Estimated GFR (MDRD) 72 L Glucose 111 H Calcium 9.2 Total Bilirubin 0.9 AST 16 ALT 24 Alkaline Phosphatase 158 H C-Reactive Protein Total Protein 7.6 Albumin 3.7 Globulin 3.9 Albumin/Globulin Ratio 0.9 L Lipase 14 09/17/23 19:52 WBC RBC Hgb Hct MCV MCH MCHC RDW Plt Count MPV Neut # (Auto) Lymph # (Auto) [place] # (Auto) Eos # (Auto) Baso # (Auto) Absolute Nucleated RBC Nucleated RBC % ESR Sodium Potassium Chloride Carbon Dioxide Anion Gap BUN Creatinine Estimated GFR (MDRD) Glucose Calcium Total Bilirubin AST ALT Alkaline Phosphatase C-Reactive Protein 4.3 H Total Protein Albumin Globulin Albumin/Globulin Ratio Lipase PD Medical Decision Making - ED course Complexity details: reviewed results, re-evaluated patient, considered differential, d/w patient ED course: 78-year-old male presented with bilateral lower extremity rash. He was seen yesterday in the clinic and treated for possible cellulitis of the right leg but states no improvement in fact has spreading petechial rash on the right leg and some also on the left. He has no other symptoms however and otherwise feels well. The rash is vasculitic in appearance, no low suspicion for cellulitis, it is bilateral, and there is no warmth or tenderness. I obtained a CBC and CMP both of which are stable, will add a CRP ESR and blood cultures to complete the workup. I think the patient will likely go to be discharged home, he can continue the doxycycline to complete course but likely will need to follow-up outpatient with PCP and possibly rheumatology for further evaluation.Low suspicion for sepsis or endocarditis at this time as patient has no risk factors, and is well-appearing with otherwise normal physical exam. ESR is 46, CRP 4.3. Patient remained stable here in the ER. I am going to discharge him home, advised follow-up with PCP as above. Departure - Departure Disposition: , Self Care Clinical Impression: Vasculitis of skin Condition: Good Comments: Ronal, the rash you have today appears to be vasculitis. There are a number of different causes of vasculitis and at this time I do not know what has caused your bout of vasculitis. Generally we monitor this, you can take anti- inflammatory medication if you are having any discomfort and I would like you to follow-up with your primary doctor within the next week or so. They may refer you to a certified maintenance welder if additional testing is necessary. For now, do continue the doxycycline for your skin redness and blistering, but do not put the steroid ointment on the blisters. If you develop a fever or worsening symptoms, return to the ER. Forms: PCP List
[2023-09-17 18:18] LABS: BASOPHILS % (AUTO) 0.5 %; EOSINOPHILS # (AUTO) 0.3 10^3/uL (0.0-0.7); EOSINOPHILS % (AUTO) 3.7 %; HCT - HEMATOCRIT 44.2 % (42.0-52.0); HGB - HEMOGLOBIN 14.1 g/dL (14.0-18.0); LYMPHOCYTES # (AUTO) 0.7 10^3/uL (1.5-3.5); LYMPHOCYTES % (AUTO) 9.6 %; MEAN CORPUSCULAR HEMOGLOBIN 30.4 pg (27.0-31.0); MEAN CORPUSCULAR HGB CONC 31.9 g/dL (32.0-36.0); MEAN CORPUSCULAR VOLUME 95.3 fL (80.0-94.0); MEAN PLATELET VOLUME 8.9 fL (7.4-11.4); MONOCYTES # (AUTO) 0.6 10^3/uL (0.0-1.0); MONOCYTES % (AUTO) 7.7 %; NEUTROPHILS % (AUTO) 78.1 %; PLT - PLATELET COUNT 358 10^3/uL (130-450); RED BLOOD COUNT 4.64 10^6/uL (4.70-6.10); WHITE BLOOD COUNT 7.7 x10^3/uL (4.8-10.8)
[2023-09-17 18:35] LABS: ALBUMIN 3.7 g/dL (3.2-5.5); ALBUMIN/GLOBULIN RATIO 0.9 (1.0-2.2); BILIRUBIN,TOTAL 0.9 mg/dL (0.2-1.0); CALCIUM 9.2 mg/dL (8.5-10.3); POTASSIUM 4.1 mmol/L (3.5-4.5); TOTAL PROTEIN 7.6 g/dL (6.4-8.9)
[2023-09-17 20:52] VITALS: BP 116/88
== END 2023-09-17 20:47 | disposition home or self-care (01) ==
LOC: ED 14:19
DX: L95.9 Vasculitis limited to the skin, unspecified (principal); I10 Essential (primary) hypertension; I48.91 Unspecified atrial fibrillation
CPT/HCPCS: 36415; 80053; 83690; 85025; 85651; 86140; 87040; 99283

== ENCOUNTER 2023-09-22 15:26 | Outpatient (CLI) | payer MEDICARE, OTHER ==
[2023-09-22 20:28] LABS: BASOPHILS # (AUTO) 0.1 10^3/uL (0.0-0.1); BASOPHILS % (AUTO) 1.1 %; EOSINOPHILS # (AUTO) 0.3 10^3/uL (0.0-0.7); EOSINOPHILS % (AUTO) 4.4 %; HCT - HEMATOCRIT 43.3 % (42.0-52.0); HGB - HEMOGLOBIN 13.7 g/dL (14.0-18.0); LYMPHOCYTES % (AUTO) 13.9 %; MEAN CORPUSCULAR HEMOGLOBIN 30.8 pg (27.0-31.0); MEAN CORPUSCULAR HGB CONC 31.6 g/dL (32.0-36.0); MEAN CORPUSCULAR VOLUME 97.3 fL (80.0-94.0); MONOCYTES # (AUTO) 0.6 10^3/uL (0.0-1.0); MONOCYTES % (AUTO) 8.2 %; NEUTROPHILS # (AUTO) 5.1 10^3/uL (1.5-6.6); NEUTROPHILS % (AUTO) 71.8 %; PLT - PLATELET COUNT 487 10^3/uL (130-450); RED BLOOD COUNT 4.45 10^6/uL (4.70-6.10); RED CELL DISTRIBUTION WIDTH 14.5 % (12.0-15.0); WHITE BLOOD COUNT 7.1 x10^3/uL (4.8-10.8)
[2023-09-22 20:43] LABS: BILIRUBIN,URINE NEGATIVE (NEGATIVE); GLUCOSE, URINE (UA) NEGATIVE (NEGATIVE); KETONES,URINE (UA) NEGATIVE (NEGATIVE); LEUKOCYTE ESTERASE, URINE NEGATIVE (NEGATIVE); NITRITE,URINE NEGATIVE (NEGATIVE); OCCULT BLOOD,URINE SMALL (NEGATIVE); PH,URINE 6.5 PH (5.0-7.5); PROTEIN,URINE NEGATIVE (NEGATIVE); UROBILINOGEN,URINE 0.2 (NORMAL) E.U./dL (NORMAL)
[2023-09-22 20:47] LABS: CLARITY,URINE CLEAR (CLEAR)
[2023-09-22 20:53] LABS: RHEUMATOID FACTOR NEGATIVE (Negative)
[2023-09-22 20:58] LABS: ALBUMIN 3.9 g/dL (3.2-5.5); ALBUMIN/GLOBULIN RATIO 1.1 (1.0-2.2); BILIRUBIN,TOTAL 0.7 mg/dL (0.2-1.0); CALCIUM 9.4 mg/dL (8.5-10.3); CRP - C-REACTIVE PROTEIN 1.3 mg/dL (<0.5); INR 1.3 (0.8-1.2); POTASSIUM 4.4 mmol/L (3.5-4.5); TOTAL PROTEIN 7.5 g/dL (6.4-8.9)
[2023-09-22 20:59] LABS: BACTERIA,URINE None Seen /HPF (None Seen); SQUAMOUS EPITHELIAL CELL,UR NONE SEEN (<= Few); WBC,URINE 0-3 /HPF (0-3)
[2023-09-22 21:10] LABS: THYROID STIMULATING HORMONE 3.49 uIU/mL (0.34-5.60)
[2023-09-24 03:14] LABS: HCV AB Non Reactive (Non Reactive)
[2023-09-24 06:34] LABS: COMPLEMENT C3 170 mg/dL (82-167); COMPLEMENT C4 21 mg/dL (12-38)
[2023-09-24 09:28] LABS: HBsAG SCREEN Negative (Negative); HEPATITIS B SURFACE AB QUAL Non Reactive (.)
[2023-09-26 19:08] LABS: ANTINUCLEAR ANTIBODIES IFA Negative (.)
[2023-09-27 16:08] LABS: CYCLIC CITRULLINATED PEP IGG/A 7 units (0-19)
== END 2023-09-22 15:27 | disposition home or self-care (01) ==
LOC: LAB.N 15:26
PROVIDERS: ATTEND Physician Assistant
DX: I77.6 Arteritis, unspecified (principal)
CPT/HCPCS: 36415; 80053; 81001; 81599; 82595; 84443; 85025; 85610; 85651; 86038; 86140; 86160; 86162; 86200; 86430; 86704; 86706; 86707; 86709; 86803; 87086; 87340; 87350

== ENCOUNTER 2023-10-05 17:08 | Outpatient (CLI) | payer MEDICARE, OTHER | END 2023-10-05 17:09 | disposition home or self-care (01) | LOC: LAB.N 17:08 | PROVIDERS: ATTEND Internal Medicine Rheumatology | DX: I77.6 Arteritis, unspecified (principal) | CPT/HCPCS: 36415; 82784 ==

== ENCOUNTER 2023-10-06 09:59 | Outpatient (CLI) | payer MEDICARE, OTHER ==
--- NOTE | 2023-10-06 14:20 | XRAY Report ---
PROCEDURE: Chest 2V INDICATIONS: INTERSTITIAL LUNG DISEASE TECHNIQUE: 2 views of the chest were acquired. COMPARISON: Chest radiograph on August 09, 2023. CT chest on August 09, 2023. FINDINGS: Surgical changes and devices: None. Lungs and pleura: Compared to chest radiograph dated August 09, 2023, diffuse reticulonodular opac ities have decreased. Right perihilar and infrahilar consolidation persists. Mediastinum: Mediastinal contours appear normal. Heart size is normal. Bones and chest wall: No suspicious bony lesions. Overlying soft tissues appear unremarkable. Mirna cystectomy clips. IMPRESSION: 1. Compared to chest radiograph dated August 09, 2023, diffuse reticulonodular opacities have decre ased, suggestive of improving edema and/or infection. 2. Right perihilar and infrahilar consolidation persists. This likely corresponds to lymphadenopathy as seen on CT chest dated August 09, 2023. Consider a repeat contrast enhanced CT of the chest to e valuate for interval change. Differential includes reactive versus malignancy. Reviewed by: Mauricio Zaragoza MD on 10/06/2023 2:19 PM PST Approved by: Mauricio Zaragoza MD on 10/06/2023 2:19 PM PST Station ID: [id number]
== END 2023-10-06 10:00 | disposition home or self-care (01) ==
LOC: DI 09:59
PROVIDERS: ATTEND Internal Medicine Rheumatology
DX: J84.9 Interstitial pulmonary disease, unspecified (principal); I77.6 Arteritis, unspecified

== ENCOUNTER 2024-01-05 07:58 | Outpatient (CLI) | payer MEDICARE, OTHER ==
[2024-01-05 12:38] LABS: ALBUMIN 3.9 g/dL (3.2-5.5); ALBUMIN/GLOBULIN RATIO 1.3 (1.0-2.2); ALKALINE PHOSPHATASE 69 IU/L (42-121); ALT ALANINE AMINOTRANSFERASE 18 IU/L (10-60); AST ASPARTATE AMINOTRANSFERASE 14 IU/L (10-42); BILIRUBIN,TOTAL 0.9 mg/dL (0.2-1.0); BUN - BLOOD UREA NITROGEN 31 mg/dL (6-20); CALCIUM 9.7 mg/dL (8.5-10.3); CARBON DIOXIDE - CO2 30 mmol/L (21-32); CHLORIDE 102 mmol/L (101-111); CHOL/HDL RATIO 2.6 (<5.0); CHOLESTEROL 165 mg/dL; CREATININE 1.2 mg/dL (0.6-1.3); GFR - MDRD 59 (>89); GLUCOSE 97 mg/dL (74-104); HDL CHOLESTEROL 64 mg/dL; LDL CHOLESTEROL,CALCULATED 90 mg/dL; LDL/HDL RATIO 1.4 (<3.6); POTASSIUM 4.3 mmol/L (3.5-4.5); SODIUM 138 mmol/L (135-145); TRIGLYCERIDES 53 mg/dL (48-352); VLDL CHOLESTEROL 11 mg/dL
== END 2024-01-05 07:59 | disposition home or self-care (01) ==
LOC: LAB.N 07:58
PROVIDERS: ATTEND Physician Assistant Medical
DX: E53.8 Deficiency of other specified B group vitamins (principal); E78.5 Hyperlipidemia, unspecified
CPT/HCPCS: 36415; 80053; 80061; 82607; 83721